=== PATIENT | female | born 1940 | race Caucasian/White ===

== ENCOUNTER 2017-04-03 07:49 | Day surgery (SDC) | payer MEDICARE ==
[~2017-04-03 07:49] MED LIST: ACYCLOVIR 5% OI30 GM TP; ACYCLOVIR800 MG PO; ADVAIR 250/5028 PUFF IN; ALBUTEROL2 PUFFS/17 IN; ASPIRIN EC81 MG PO; ASPIRIN81 M2 PO; AZITHROMYCIN250 M1 PO; BACTRIM DS 8001 TAB PO; BENTYL10 M1 PO; BIAXIN 500MG T500 MG PO; CEFTIN500 MG PO; CELEXA20 MG PO; CHEWABLE ASPIRI81 MG PO; FIORICET 325 MG1 TAB PO; GAS-X80 MG PO; IBUPROFEN 600M600 MG PO; IMDUR30 MG PO; IPRATROPIUM BROM3 M1 IH; ISOSORBIDE DINITRATE 40 MG PO; KEFLEX 500MG.500 MG PO; LASIX 40MG. TAB40 MG PO; LORTAB 5/500 501 TAB PO; LORTAB 500 MG-71 TAB PO; MAALOX 30ML30 ML/UDC PO; MEDROL 4MG. DOSE4 MG PO; MOBIC15 MG PO; MOBIC7.5 MG PO; MULTI VITAMINS1 TAB PO; MULTIVITAMIN1 TA1 PO; NAPROSYN 500MG500 MG PO; NITROQUICK0.3 MG SL; NITROSTAT 0.4M0.4 MG SL; NORCO 325 MG-51 TAB PO; PERCOCET 5/3251 EACH PO; PYRIDIUM 200MG200 MG PO; SALMETEROL-F28 PUFF2 IN; SENNA DOCUSATE1 TAB PO; TYLENOL 8 HOUR650 MG PO; VASOTEC2.5 MG PO; VASOTEC5 MG PO; VISTARIL25 MG PO; ZITHROMAX 250M250 MG PO; ZOCOR20 MG PO
[2017-04-03 08:18] LABS: HEMOGLOBIN 13.8 g/dL (12.2-16.2); LYMPH # 2.5 K/mm3 (0.7-4.5); LYMPH % 30.8 % (10-50.0)
[2017-04-03 08:21] LABS: BUN 13 mg/dL (7-18)
[2017-04-03 08:22] LABS: GFR (ESTIMATED) 70 ML/MIN (59-)
--- NOTE | 2017-04-03 10:52 | RADIOLOGY REPORT PS360 ---
CARDIAC CATHETERIZATION DATE OF CATHETERIZATION:04/03/2017 9:42 AM PROCEDURES: 1. Left heart catheterization 2. Left ventriculogram 3. Selective coronary angiogram INDICATION FOR TEST: 1. Abnormal Myoview 2. Angina pectoris 3. Risk factors for coronary artery disease Informed consent was obtained prior to the procedure. COMPLICATIONS: None ESTIMATED BLOOD LOSS: Less than 10 ml. TECHNIQUE: One percent lidocaine was used to anesthetize the right groin. The right femoral artery was accessed via the Seldinger technique. A 4-Tanzanian sheath was placed in the right femoral artery. The JL-4 and JR-4 catheter was also used to perform left heart catheterization and left ventriculography. At the end of the procedure the patient was transferred to the post-op holding area in stable condition for arterial sheath removal. ANGIOGRAPHIC RESULTS: 1. The left main artery large caliber and normal 2. The left anterior descending artery proximally has mild luminal irregularities of 10% with mild luminal irregularities of 10% in the mid segment 3. The circumflex artery is a dominant vessel and has mild less than 10% luminal irregularities 4. The right coronary artery is a nondominant vestigial vessel which has a 90% stenosis just proximal to 2 very small marginal branches. A Kugel collateral is identified from the sinoatrial branch distally. The ostium of this right coronary artery is 2.5 mm however the proximal right coronary artery is 0.5 mm and at the stenotic area it is less than 1 mm in diameter 5. The PIZANO ventriculogram reveals hyperdynamic 75% 6. The left ventricular end-diastolic pressure 10 mmHg IMPRESSION: 1. Mild luminal irregularities in the LAD and dominant circumflex artery 2. Severe stenosis and a very small vestigial nondominant right coronary artery which is clinically insignificant 3. Slightly hyperdynamic ejection fraction 4. Normal left ventricular end-diastolic pressur PLAN: 1. Medical management 2. Risk factor modification 3. I cannot manage in any clinical scenario in which performing angioplasty of the small right coronary artery would exist.
[2017-04-03 13:17] VITALS: BP 152/69
== END 2017-04-03 13:15 | disposition home or self-care (01) ==
LOC: CATHLAB 07:49
PROVIDERS: Internal Medicine
PROC: B2111ZZ Fluoroscopy of Multiple Coronary Arteries using Low Osmolar Contrast (ICD-10-PCS; 2017-04-03)
PROC: B2151ZZ Fluoroscopy of Left Heart using Low Osmolar Contrast (ICD-10-PCS; 2017-04-03)
PROC: 4A023N7 Measurement of Cardiac Sampling and Pressure, Left Heart, Percutaneous Approach (ICD-10-PCS; principal; 2017-04-03 08:30)
DX: I25.119 Atherosclerotic heart disease of native coronary artery with unspecified angina pectoris (principal); R94.39 Abnormal result of other cardiovascular function study
CPT/HCPCS: C1725; C1769; J1644; Q9967

== ENCOUNTER 2017-06-13 19:19 | Emergency (ER) | payer MEDICARE ==
[~2017-06-13] VITALS: Ht 160 cm; Wt 62.6 kg
--- NOTE | 2017-06-13 19:57 | Emergency Room Report ---
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 C/O NAUSEA AND LIGHT HEADEDNESS ALSO. 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 N Clinical Suspician of Infection? N Mental Status: 1 - Regular (Normal Baseline) Sepsis Risk:Possible Sepsis Risk Have you (or family members/close friends) recently traveled outside the [place]? N If Yes, where/when: Have you had exposure to infectious disease within the past month? N TB? Other? Specify: Patient complains of chest pain which started last night before she went to bed at the LEFT side of her chest moderate severity is dull H she states there is nausea associated with it states she called the ambulance around noon but then she stated her vital signs were okay so she did not come in her chest pain does not radiate anywhere. She has had this chest pain before. I discussed with patient that the oncoming doctor is coming in about 15 minutes and that he will take over her care, but that we will get things started now. He denies any fever chills or cough. Denies abdominal pain ALLERGIES Coded Allergies: Coconut (From COCONUT (FOOD/DRUG)) (Intermediate, I-RASH 08/05/16) Penicillins (Intermediate, I-RASH 08/05/16) TUNA (DRUG) (From TUNA (FOOD/DRUG)) (Intermediate, I-RASH 08/05/16) Tuna (From TUNA (FOOD/DRUG)) (Intermediate, I-RASH 08/05/16) coconut (From COCONUT (FOOD/DRUG)) (Intermediate, I-RASH 08/05/16) codeine (Intermediate, I-RASH, NAUSEA/VOMITING 08/05/16) levofloxacin (Mild, NA-NAUSEA/VOMITING 08/05/16) Home Medications Active Scripts SENNOSIDES-DOCUSATE SODIUM (Senokot-S Tablet) 1 TAB PO DAILY 30 Days Prov: 06/18/13 Nitroglycerin (Nitrostat 0.4MG (1/150 Gr) Tabs #25) 0.4 MG SL [id number] PRN CHEST PAIN #25 TAB Ref 2 Prov: 05/18/16 Reported Medications Isosorbide Mononitrate (Imdur) 30 MG PO DAILY NAPROXEN (NAPROSYN 500MG TAB) 500 MG PO BID MAG HYDROX/AL HYDROX/SIMETH (Mag-Al Plus Suspension) 30 ML PO PRN Simvastatin (Zocor) 20 MG PO DAILY Salmeterol 50/Fluticasone 100 (Advair 100-50 Diskus) 1 PUFF IN BID ALBUTEROL-IPRATROPIUM (Iprat-Albut 0.5-3(2.5) MG/3 Ml) 3 ML IH Q4HP Aspirin 325 MG PO DAILY Multiple Vitamin (Multivitamin) 1 TAB PO DAILY ENALAPRIL MALEATE (Vasotec 2.5MG) 5 MG PO BID DICYCLOMINE HCL (Bentyl) 10 MG PO QID HYDROCODONE/ACETAMINOPHEN ([place] 5-325 Tablet) 1 TAB PO Q4HP PRN PAIN ([place] GÓMEZ, Boni) History Medical History General CAD? Yes Angina: Yes [place]: Yes Hypertension? Yes Hyperlipidemia? Yes CHF? Yes DVT? No PE? No COPD? Yes Asthma? Yes Anemia? No GERD? Yes Gastric ulcers? No GI Bleed? No Hernia? No Thyroid Problems? No Hypothyroidism? No CVA? Yes Seizures? No Diabetes? No Renal Insuffiency? No End Stage Renal Disease? No UTI? Yes Stones? No BPH? No GB Disease: Yes Nephritic Syndrome? No Asplenia? No Hepatitis? No Sickle Cell Disease? No Arthritis? Yes Migraines? No Cataracts? Yes Glaucoma? No MRSA? No HIV? No TB? No Anxiety? Yes Depression? Yes Cancer? Yes Site: BASAL CELL SKIN CA LT ARM More? No Additional hx: 1. Lupus 2. [place] x 4 3. Stroke x 4 4. A. fib 5. Abdominal aneurysm 6. RA 7. Neuropathy Immunization Hx DT/Tetanus 1-4 Years Ago Flu Refused Pneumonia Refuses Surgical Hx Previous Surgery?Y GallbladdER Hysterectomy LEFT KNEE REPLACEMENT RT ARM FX LT FEMUR FX SKIN CA REMOVED LT ARM Family History Family Hx Diabetes Yes CAD Yes Hypertension Yes Hyperlipidemia Yes Cancer Yes TB No Social History Smoking Hx Smoker: Never Smoker Tobacco: No Packs/day N/A Alcohol Alcohol: No (Boni Barahona MD) Review of Systems All Other Systems Reviewed and Negative (Boni Barahona MD) Physical Exam Vital Signs Vital Signs Date Time Temp Pulse Resp B/P Pulse O2 O2 Flow FiO2 Ox Delivery Rate 06/14 0000 98.1 100 18 156/71 97 2 06/13 2339 98.1 93 18 148/107 97 06/134 105 18 157/86 97 2 06/134 18 06/13 2053 109 18 176/92 98 2 06/13 2012 103 21 215/109 99 06/13 1921 98.1 101 24 146/85 100 2 General Appearance: Nontoxic Head: Normocephalic, without obvious abnormality, atraumatic. Eyes: conjunctiva/corneas clear ENT: Mucous membranes moist. Neck: No jugular venous distention. Cardiac: regular rate and rhythm Lungs: Rhonchi to auscultation bilaterally Abdomen: Nontender, Nondistended, positive bowel sounds, no rebound : No CVA tenderness Extremities: no edema Musculoskeletal: No chest wall tenderness Skin: No rashes or lesions to exposed skin. Neurologic: Alert. No gross focal deficits Psychiatric: Normal affect (Boni Barahona MD) General Appearance normal appearance Respiratory Status No: respiratory distress. Cardiovascular no JVD Neurologic alert (Boni Barahona MD) Medical Decision Making LABS/Meds/Orders Pt receiving controlled substance in ED? No Comment 757 pm I have seen the patient at 745, further treatment, disposition, testing as felt indicated by Dr. You Results/Orders Laboratory Tests 06/13/172257: Troponin I < 0.02 06/13/172024: Lactic Acid 0.6 06/13/172024: Sodium 139, Potassium 3.8, Chloride 104, Carbon Dioxide 27, BUN 18, Creatinine 0.7, Estimated Creat Clear 70, Estimated GFR (MDRD) 82, Glucose 126 H, Calcium 8.7, Total Bilirubin 0.8, AST 27, ALT 35, Alkaline Phosphatase 154 H, Creatine Kinase 17 L, CK-MB (CK-2) Rel Index 2.9, CK and CKMB Interp < 0.5, Troponin I < 0.02, Total Protein 7.4, Albumin 3.7, Globulin 3.7 H, Albumin/Globulin Ratio 1.0 L, D-Dimer 666 *H, WBC 7.4, RBC 4.32, Hgb 13.6, Hct 40.6, MCV 94.0, RDW 14.5, Plt Count 194, MPV 8.0, Gran % 85.7 H, Gran # 6.3, Total Counted 100, Lymphocytes % 9.8 L, Monocytes % 3.4, Eosinophils % 0.8, Basophils % 0.4, Neutrophils 82 H, Lymphocytes (Manual) 16, Lymphocytes # 0.7, Monocytes (Manual ) 1 L, Monocytes # 0.3, Eosinophils # 0.1, Eosinophils # (Manual) 1, Basophils # 0.0, Platelet Estimate NORMAL, Anisocytosis 1+, PUBS MCHC 33.6, MCH 31.6 H, Salicylates 1.0 L Current Medication Orders Sig/Zhen Start time Last Medication Dose Route Stop Time Status Admin Iopamidol 60 ML ONCE ONE 06/13 2230 DCD 06/13 IV 06/13 2231 222 Sodium Chloride 40 ML ONCE ONE 06/13 2230 DCD 06/13 IV 06/13 2231 2227 Aspirin 0 .STK-MED ONE 06/13 2101 DC .ROUTE Ondansetron HCl 0 .STK-MED ONE 06/13 2101 DC .ROUTE Aspirin 324 MG ONCE ONE 06/13 2000 DC 06/13 PO 06/13 2001 210 Nitroglycerin 0.4 MG [id number] PRN 06/13 2000 DCD 06/13 SL 2104 Ondansetron HCl 4 MG ONCE ONE 06/13 2000 DC 06/13 IV 06/13 2001 210 Sodium Chloride 10 ML PRN PRN 06/13 1945 DCD IV 06/14 1940 Orders Procedure Date/time Status DIET-NOTHING BY MOUTH 06/14 B Active TROPONIN I 06/13 2244 Complete CTA-CHEST 06/[address] CHEST W/PE PROTOCOL REQ 06/13 2118 Complete DIFFERENTIAL-WBC 06/13 2025 Complete CHEST-PORTABLE 06/13 2022 Active D-DIMER 06/13 2021 Complete CULTURE, BLOOD 06/13 2006 Active LACTIC ACID 06/13 2006 Complete SALICYLATE 06/13 1949 Complete ELECTROCARDIOGRAM REQUEST 06/13 1941 Active IV SALINE LOCK 08/01 1941 Active NURSE CONSULTANT 06/13 1941 Active CBC WITH AUTO DIFF 06/13 1941 Complete CARDIAC ENZYMES 06/13 1941 Complete CHEM 12 PROFILE 06/13 1941 Complete 12 LEAD EKG-MARKO (INITIAL) 06/13 UNK Active 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 Pacemaker. No pneumothorax. No acute disease. CT chest Comment CT scan interpreted by [facility] radiologist. Faxed report received and reviewed: No pulmonary embolism to the segmental level. Motion artifact. Progress - 8:00 PM: At shift change, patient report received from Dr. Barahona, and care of the patient assumed by me at this time. Patient seen and examined. She says that she has chronic chest pain, "I live with it every day" for years. She says it has been worse for 2 days. She says she felt bad tonight with dizziness and chest pain and nausea and therefore called 911. She just had a pacemaker put in a couple of weeks ago. She says she had it done under general anesthesia and she was in the hospital for couple of days. Chest pain is in her anterior central and LEFT chest. She says it worsens with movement and also with deep breath. She is short of breath, but says this is chronic from chronic obstructive pulmonary disease. She also has a chronic cough, which is unchanged. No sputum or hemoptysis. She feels hot, but no documented fever. No leg pain or swelling. She is nauseated without vomiting. Examination shows her to be in no distress. Mildly tachycardic. Pacemaker insertion site LEFT upper anterior chest shows Steri-Strips in place, healing well without any signs of infection. No tenderness. She is tender diffusely over her anterior chest, however, and this reproduces her chief complaint. Onset clear. Heart regular, tachycardic without murmurs. Abdomen is soft and nontender. Extremities show no edema, no calf tenderness or cords. Good pulses in all 4 cavities. The patient very much wants to go home, she has asked me several times during her history if she can go home. 11:45 PM: The patient again requests to go home. Workup is negative. CT scan is only to the segmental level, but I am comfortable that she does not have pulmonary embolism and I feel she can be discharged. Blood pressure has come down to 156/71. (Geronimo You MD) Departure Departure Time of Disposition 1951 Condition STABLE Referrals Ivett Howe MD (Family) ED Critical Care Critical Care No (Boni Barahona MD) Departure Disposition DC Home or Self Care(routine) Clinical Impression Primary Impression: Chest pain Qualifiers: Chest pain type: precordial pain Qualified Code: R07.2 - Precordial pain Patient Instructions DI for Atypical Chest Pain Additional Instructions Additional instructions for CHEST PAIN: See your physician as soon as possible for further evaluation. Return immediately if worsening chest pain, vomiting, shortness of breath, fever, coughing of blood. (Geronimo You MD) at 1956 at 0148
--- NOTE | 2017-06-13 19:57 | Emergency Room Report ---
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 C/O NAUSEA AND LIGHT HEADEDNESS ALSO. 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 N Clinical Suspician of Infection? N Mental Status: 1 - Regular (Normal Baseline) Sepsis Risk:Possible Sepsis Risk Have you (or family members/close friends) recently traveled outside the [place]? N If Yes, where/when: Have you had exposure to infectious disease within the past month? N TB? Other? Specify: Patient complains of chest pain which started last night before she went to bed at the LEFT side of her chest moderate severity is dull H she states there is nausea associated with it states she called the ambulance around noon but then she stated her vital signs were okay so she did not come in her chest pain does not radiate anywhere. She has had this chest pain before. I discussed with patient that the oncoming doctor is coming in about 15 minutes and that he will take over her care, but that we will get things started now. He denies any fever chills or cough. Denies abdominal pain ALLERGIES Coded Allergies: Coconut (From COCONUT (FOOD/DRUG)) (Intermediate, I-RASH 08/05/16) Penicillins (Intermediate, I-RASH 08/05/16) TUNA (DRUG) (From TUNA (FOOD/DRUG)) (Intermediate, I-RASH 08/05/16) Tuna (From TUNA (FOOD/DRUG)) (Intermediate, I-RASH 08/05/16) coconut (From COCONUT (FOOD/DRUG)) (Intermediate, I-RASH 08/05/16) codeine (Intermediate, I-RASH, NAUSEA/VOMITING 08/05/16) levofloxacin (Mild, NA-NAUSEA/VOMITING 08/05/16) Home Medications Active Scripts SENNOSIDES-DOCUSATE SODIUM (Senokot-S Tablet) 1 TAB PO DAILY 30 Days Prov: 06/18/13 Nitroglycerin (Nitrostat 0.4MG (1/150 Gr) Tabs #25) 0.4 MG SL [id number] PRN CHEST PAIN #25 TAB Ref 2 Prov: 05/18/16 Reported Medications Isosorbide Mononitrate (Imdur) 30 MG PO DAILY NAPROXEN (NAPROSYN 500MG TAB) 500 MG PO BID MAG HYDROX/AL HYDROX/SIMETH (Mag-Al Plus Suspension) 30 ML PO PRN Simvastatin (Zocor) 20 MG PO DAILY Salmeterol 50/Fluticasone 100 (Advair 100-50 Diskus) 1 PUFF IN BID ALBUTEROL-IPRATROPIUM (Iprat-Albut 0.5-3(2.5) MG/3 Ml) 3 ML IH Q4HP Aspirin 325 MG PO DAILY Multiple Vitamin (Multivitamin) 1 TAB PO DAILY ENALAPRIL MALEATE (Vasotec 2.5MG) 5 MG PO BID DICYCLOMINE HCL (Bentyl) 10 MG PO QID HYDROCODONE/ACETAMINOPHEN ([place] 5-325 Tablet) 1 TAB PO Q4HP PRN PAIN ([place] GÓMEZ, Boni) History Medical History General CAD? Yes Angina: Yes [place]: Yes Hypertension? Yes Hyperlipidemia? Yes CHF? Yes DVT? No PE? No COPD? Yes Asthma? Yes Anemia? No GERD? Yes Gastric ulcers? No GI Bleed? No Hernia? No Thyroid Problems? No Hypothyroidism? No CVA? Yes Seizures? No Diabetes? No Renal Insuffiency? No End Stage Renal Disease? No UTI? Yes Stones? No BPH? No GB Disease: Yes Nephritic Syndrome? No Asplenia? No Hepatitis? No Sickle Cell Disease? No Arthritis? Yes Migraines? No Cataracts? Yes Glaucoma? No MRSA? No HIV? No TB? No Anxiety? Yes Depression? Yes Cancer? Yes Site: BASAL CELL SKIN CA LT ARM More? No Additional hx: 1. Lupus 2. [place] x 4 3. Stroke x 4 4. A. fib 5. Abdominal aneurysm 6. RA 7. Neuropathy Immunization Hx DT/Tetanus 1-4 Years Ago Flu Refused Pneumonia Refuses Surgical Hx Previous Surgery?Y GallbladdER Hysterectomy LEFT KNEE REPLACEMENT RT ARM FX LT FEMUR FX SKIN CA REMOVED LT ARM Family History Family Hx Diabetes Yes CAD Yes Hypertension Yes Hyperlipidemia Yes Cancer Yes TB No Social History Smoking Hx Smoker: Never Smoker Tobacco: No Packs/day N/A Alcohol Alcohol: No (oBni Barahona MD) Review of Systems All Other Systems Reviewed and Negative (Boni Barahona MD) Physical Exam Vital Signs Vital Signs Date Time Temp Pulse Resp B/P Pulse O2 O2 Flow FiO2 Ox Delivery Rate 06/14 0000 98.1 100 18 156/71 97 2 06/13 2339 98.1 93 18 148/107 97 06/134 105 18 157/86 97 2 06/134 18 06/13 2053 109 18 176/92 98 2 06/13 2012 103 21 215/109 99 06/13 1921 98.1 101 24 146/85 100 2 General Appearance: Nontoxic Head: Normocephalic, without obvious abnormality, atraumatic. Eyes: conjunctiva/corneas clear ENT: Mucous membranes moist. Neck: No jugular venous distention. Cardiac: regular rate and rhythm Lungs: Rhonchi to auscultation bilaterally Abdomen: Nontender, Nondistended, positive bowel sounds, no rebound : No CVA tenderness Extremities: no edema Musculoskeletal: No chest wall tenderness Skin: No rashes or lesions to exposed skin. Neurologic: Alert. No gross focal deficits Psychiatric: Normal affect (Boni Barahona MD) General Appearance normal appearance Respiratory Status No: respiratory distress. Cardiovascular no JVD Neurologic alert (Boni Barahona MD) Medical Decision Making LABS/Meds/Orders Pt receiving controlled substance in ED? No Comment 757 pm I have seen the patient at 745, further treatment, disposition, testing as felt indicated by Dr. You Results/Orders Laboratory Tests 06/13/172257: Troponin I < 0.02 06/13/172024: Lactic Acid 0.6 06/13/172024: Sodium 139, Potassium 3.8, Chloride 104, Carbon Dioxide 27, BUN 18, Creatinine 0.7, Estimated Creat Clear 70, Estimated GFR (MDRD) 82, Glucose 126 H, Calcium 8.7, Total Bilirubin 0.8, AST 27, ALT 35, Alkaline Phosphatase 154 H, Creatine Kinase 17 L, CK-MB (CK-2) Rel Index 2.9, CK and CKMB Interp < 0.5, Troponin I < 0.02, Total Protein 7.4, Albumin 3.7, Globulin 3.7 H, Albumin/Globulin Ratio 1.0 L, D-Dimer 666 *H, WBC 7.4, RBC 4.32, Hgb 13.6, Hct 40.6, MCV 94.0, RDW 14.5, Plt Count 194, MPV 8.0, Gran % 85.7 H, Gran # 6.3, Total Counted 100, Lymphocytes % 9.8 L, Monocytes % 3.4, Eosinophils % 0.8, Basophils % 0.4, Neutrophils 82 H, Lymphocytes (Manual) 16, Lymphocytes # 0.7, Monocytes (Manual ) 1 L, Monocytes # 0.3, Eosinophils # 0.1, Eosinophils # (Manual) 1, Basophils # 0.0, Platelet Estimate NORMAL, Anisocytosis 1+, PUBS MCHC 33.6, MCH 31.6 H, Salicylates 1.0 L Current Medication Orders Sig/Zhen Start time Last Medication Dose Route Stop Time Status Admin Iopamidol 60 ML ONCE ONE 06/13 2230 DCD 06/13 IV 06/13 2231 222 Sodium Chloride 40 ML ONCE ONE 06/13 2230 DCD 06/13 IV 06/13 2231 2227 Aspirin 0 .STK-MED ONE 06/13 2101 DC .ROUTE Ondansetron HCl 0 .STK-MED ONE 06/13 2101 DC .ROUTE Aspirin 324 MG ONCE ONE 06/13 2000 DC 06/13 PO 06/13 2001 210 Nitroglycerin 0.4 MG [id number] PRN 06/13 2000 DCD 06/13 SL 2104 Ondansetron HCl 4 MG ONCE ONE 06/13 2000 DC 06/13 IV 06/13 2001 210 Sodium Chloride 10 ML PRN PRN 06/13 1945 DCD IV 06/14 1940 Orders Procedure Date/time Status DIET-NOTHING BY MOUTH 06/14 B Active TROPONIN I 06/13 2244 Complete CTA-CHEST 06/[address] CHEST W/PE PROTOCOL REQ 06/13 2118 Complete DIFFERENTIAL-WBC 06/13 2025 Complete CHEST-PORTABLE 06/13 2022 Active D-DIMER 06/13 2021 Complete CULTURE, BLOOD 06/13 2006 Active LACTIC ACID 06/13 2006 Complete SALICYLATE 06/13 1949 Complete ELECTROCARDIOGRAM REQUEST 06/13 1941 Active IV SALINE LOCK 08/01 1941 Active WAX PUMPER 06/13 1941 Active CBC WITH AUTO DIFF 06/13 1941 Complete CARDIAC ENZYMES 06/13 1941 Complete CHEM 12 PROFILE 06/13 1941 Complete 12 LEAD EKG-MARKO (INITIAL) 06/13 UNK Active 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 Pacemaker. No pneumothorax. No acute disease. CT chest Comment CT scan interpreted by [facility] radiologist. Faxed report received and reviewed: No pulmonary embolism to the segmental level. Motion artifact. Progress - 8:00 PM: At shift change, patient report received from Dr. Barahona, and care of the patient assumed by me at this time. Patient seen and examined. She says that she has chronic chest pain, "I live with it every day" for years. She says it has been worse for 2 days. She says she felt bad tonight with dizziness and chest pain and nausea and therefore called 911. She just had a pacemaker put in a couple of weeks ago. She says she had it done under general anesthesia and she was in the hospital for couple of days. Chest pain is in her anterior central and LEFT chest. She says it worsens with movement and also with deep breath. She is short of breath, but says this is chronic from chronic obstructive pulmonary disease. She also has a chronic cough, which is unchanged. No sputum or hemoptysis. She feels hot, but no documented fever. No leg pain or swelling. She is nauseated without vomiting. Examination shows her to be in no distress. Mildly tachycardic. Pacemaker insertion site LEFT upper anterior chest shows Steri-Strips in place, healing well without any signs of infection. No tenderness. She is tender diffusely over her anterior chest, however, and this reproduces her chief complaint. Onset clear. Heart regular, tachycardic without murmurs. Abdomen is soft and nontender. Extremities show no edema, no calf tenderness or cords. Good pulses in all 4 cavities. The patient very much wants to go home, she has asked me several times during her history if she can go home. 11:45 PM: The patient again requests to go home. Workup is negative. CT scan is only to the segmental level, but I am comfortable that she does not have pulmonary embolism and I feel she can be discharged. Blood pressure has come down to 156/71. (Geronimo You MD) Departure Departure Time of Disposition 1951 Condition STABLE Referrals Ivett Howe MD (Family) ED Critical Care Critical Care No (Boni Barahona MD) Departure Disposition DC Home or Self Care(routine) Clinical Impression Primary Impression: Chest pain Qualifiers: Chest pain type: precordial pain Qualified Code: R07.2 - Precordial pain Patient Instructions DI for Atypical Chest Pain Additional Instructions Additional instructions for CHEST PAIN: See your physician as soon as possible for further evaluation. Return immediately if worsening chest pain, vomiting, shortness of breath, fever, coughing of blood. (Geronimo You MD) at 1956 at 0148
[2017-06-13 20:39] LABS: HEMOGLOBIN 13.6 g/dL (12.2-16.2); LYMPH # 0.7 K/mm3 (0.7-4.5); LYMPH % 9.8 % (10-50.0)
[2017-06-13 21:07] LABS: BUN 18 mg/dL (7-18)
[2017-06-13 21:10] LABS: GFR (ESTIMATED) 82 ML/MIN (59-)
[2017-06-13 22:42] LABS: NEUTROPHILS 82 % (42-76)
[2017-06-14] VITALS: BP 156/71
--- NOTE | 2017-06-14 08:15 | RADIOLOGY REPORT PS360 ---
CHEST-PORTABLE COMPARISON: PA and lateral chest 05/29/2017 HISTORY: S pain TECHNIQUE: Portable upright chest FINDINGS: There is a fairly good inspiration and the lung contreras are clear of infiltrate. Again noted is a calcified granuloma right upper lobe. There is borderline cardio megaly. The cardiac pacemaker and dual chamber electrodes are noted and this has been put in since the previous chest film of 29 May. The costo phrenic angles are clear. IMPRESSION: Nonacute chest findings
--- NOTE | 2017-06-14 08:19 | RADIOLOGY REPORT PS360 ---
CTA -CHEST COMPARISON: None HISTORY: Chest pain and shortness of breath TECHNIQUE: Multiaxial scans obtained from the upper chest to the hemidiaphragms after rapid injection of IV contrast. Sagittal coronal reformats were evaluated as well. FINDINGS: There is excellent vascular opacification. There is mild generalized cardio megaly with moderate aortic tortuosity. There are no definite pulmonary emboli seen. There are areas of diffuse groundglass attenuation in the lung contreras primarily in the perihilar regions and lower lobes probably reflecting some degree of chronic interstitial lung disease. I see no definite acute pneumonic infiltrate. There is no pleural fluid. The bony thorax is normal. IMPRESSION: 1. There is no PE 2. Moderate generalized cardio megaly with aortic tortuosity with no evidence of failure. 3.. Diffuse areas of groundglass opacity in both lungs likely reflecting chronic interstitial pulmonary disease, agree the [facility] report
--- OUTSIDE RECORDS SUMMARY | 2017-06-16 17:32 | External Medical Summary Rpt ---
Author Author [facility] Organization [facility] Address Unknown Phone Unavailable Care Team Providers Care Network Control Technician Name Role Phone SADE ALMENDAREZ PCP [phone] Encounter [facility] [id number] Date(s): 05/31/17 - 06/01/17 [facility] [address] [place] [id number]- Discharge Diagnosis: Sick sinus syndrome Discharge Disposition: OP Self Care or Home Attending Physician: ROCK REDDING MD-CAR Admitting Physician: ROCK REDDING MD-CAR Referring Physician: ROCK REDDING MD-CAR Reason for Visit SICK SINUS SYNDROME Vital Signs Most recent 1 2 3 to oldest [Reference Range]: Temperature Oral Oral (06/01/17 Oral Source (06/01/17 4:00 PM) 12:30 PM) (06/01/17 7:42 AM) Temperature Fahrenheit Fahrenheit Fahrenheit Mode (06/01/17 4:00 PM) (06/01/17 12:30 (06/01/17 7:42 AM) PM) Temperature, 97.4 Deg F 97.6 Deg F 97.6 Deg F Fahrenheit (06/01/17 4:00 PM) (06/01/17 12:30 (06/01/17 12:15 [96.8-99.7 PM) PM) Deg F] Clinical 36.3 Deg C 36.4 Deg C 36.4 Deg C Temperature, (06/01/17 4:00 PM) (06/01/17 12:30 (06/01/17 12:15 C PM) PM) Pulse Method Pulse Oximetry (05/31/17 4:00 PM) Heart Rate, 38 bpm Apical *LOW* [60-100 bpm] (05/31/17 5:19 PM) Heart Rate 64 bpm 65 bpm 66 bpm Monitored (06/01/17 4:00 PM) (06/01/17 3:30 PM) (06/01/17 3:00 PM) [60-100 bpm] Respiratory 18 Breaths/Min 16 Breaths/Min 18 Breaths/Min Rate [14-20 (06/01/17 4:00 PM) (06/01/17 12:30 (06/01/17 7:48 AM) Breaths/Min] PM) Blood Arm, right upper Pressure (05/31/17 4:00 PM) Location Blood Non-Invasive BP Pressure Device (05/31/17 Source 4:00 PM) Blood Sitting Pressure (05/31/17 4:00 PM) Position Blood 123/57 mmHg 116/58 mmHg 110/58 mmHg Pressure (06/01/17 4:00 PM) (06/01/17 3:30 PM) (06/01/17 3:00 PM) [90-140/60-9 0 mmHg] Mean 79 mmHg 77 mmHg 75 mmHg Arterial (06/01/17 4:00 PM) (06/01/17 3:30 PM) (06/01/17 3:00 PM) Pressure (MAP) Mean 74 93 68 Arterial (06/01/17 4:00 PM) (06/01/17 3:30 PM) (06/01/17 3:00 PM) Pressure (MAP)-BMDI Oxygen 97 % 95 % 95 % Saturation (06/01/17 4:00 PM) (06/01/17 3:30 PM) (06/01/17 3:00 PM) [94-100 %] Oxygen Room air Nasal cannula Nasal cannula Therapy Mode (06/01/17 4:00 PM) (06/01/17 8:00 AM) (06/01/17 7:56 AM) Oxygen Flow 2 Liter/Min 2 Liter/Min 2 Liter/Min Rate (06/01/17 8:00 AM) (06/01/17 7:56 AM) (06/01/17 7:42 AM) Height Stated Stated Source (05/31/17 6:23 PM) (05/31/17 4:15 PM) Height Entry [place] Doddr[place] Format (05/31/17 6:23 PM) (05/31/17 4:15 PM) Height/Lengt 5 ft 5 ft h, SYRIAC (05/31/17 6:23 PM) (05/31/17 4:15 PM) (ft) Height/Lengt 3 Inch 3 Inch h SYRIAC (05/31/17 6:23 PM) (05/31/17 4:15 PM) CLINICALHEIG 160.02 cm 160.02 cm HT (05/31/17 6:23 PM) (05/31/17 4:15 PM) Weight Bed scale Standing scale Source (05/31/17 6:23 PM) (05/31/17 4:15 PM) Weight Entry [place] Doddridge Format (05/31/17 6:23 PM) (05/31/17 4:15 PM) Weight 138 lb 140 lb Korean lb (05/31/17 6:23 PM) (05/31/17 4:15 PM) Weight 2 oz Korean oz (05/31/17 6:23 PM) CLINICALWEIG 62.78 kg 63.64 kg HT (05/31/17 6:23 PM) (05/31/17 4:15 PM) Body Surface 1.65 m2 1.66 m2 Area (BSA) (05/31/17 6:23 PM) (05/31/17 4:15 PM) Body Mass 24.5 kg/m2 24.9 kg/m2 Index *HI* *HI* [19.0-24.0 (05/31/17 6:23 PM) (05/31/17 4:15 PM) kg/m2] [place] Body 52 kg 52 kg Weight (05/31/17 6:23 PM) (05/31/17 4:15 PM) Problem List Condition Effective Status Health Informant Dates Status Aneurysm(Con Active patient firmed) Angina(Confi Active patient rmed) Arthritis(Co Active patient nfirmed) Atrial Active patient fibrillation (Confirmed) Back Active patient pain(Confirm ed) Cataract(Con Active patient firmed) Cardiac Active patient arrhythmia(C onfirmed) COPD(Confirm Active patient ed) Deep vein Active patient thrombosis(C onfirmed) GERD - Active patient Gastro-esoph ageal reflux disease(Conf irmed) H/O: Active patient CVA(Confirme d) Heart Active patient failure(Conf irmed) Bradycardia( Active patient Confirmed) Hypertension Active patient (Confirmed) Impaired Active patient vision(Confi rmed) Insomnia(Con Active patient firmed) Irritable Active patient bowel syndrome(Con firmed) Basal cell Active patient cancer(Confi rmed) Migraine(Con Active patient firmed) Myocardial Active patient infarction(C onfirmed) Neuropathy(C Active patient onfirmed) Osteoporosis Active patient (Confirmed) Lupus(Confir Active patient med) Allergies, Adverse Reactions, Alerts Substance Reaction Severity Status codeine Active Levaquin Active penicillin Active Medications acetaminophen-hydrocodone ([place] 5 mg-325 mg oral tablet)1 Tab, Oral, Every 6 Hours, Refills: 0 albuterol-ipratropium (albuterol-ipratropium 2.5 mg-0.5 mg/3 mL inhalation solution)3 mL, Nebulized Inhalation , Four Times A Day, Refills: 0 aspirin (aspirin 81 mg oral delayed release tablet)1 Tab, Oral, Every Day, Refills: 0 dicyclomine (Bentyl 10 mg oral capsule) 1 Cap, Oral, Four Times A Day, Refills: 0 docusate-senna (docusate-senna 50 mg-8.6 mg oral tablet)1 Tab, Oral, Every Day, Refills: 0 enalapril (enalapril 2.5 mg oral tablet) 1 Tab, Oral, Every Day, Refills: 0 fluticasone-salmeterol (Advair Diskus 250 mcg-50 mcg inhalation powder)1 Puff, Inhalation, Two Times A Day, Refills: 0 isosorbide mononitrate (Imdur 30 mg oral tablet, extended release)1 Tab, Oral, Every Morning, Refills: 0 multivitamin (Multiple Vitamins oral capsule) 1 Cap, Oral, Every Day, Refills: 0 naproxen (naproxen 500 mg oral tablet) 1 Tab, Oral, Two Times A Day, Refills: 0 nitroglycerin (Nitrostat 0.4 mg sublingual tablet)1 Tab, SubLINgual , every 5 minutes, As Needed, as needed for chest pain, Refills: 0 Non Formulary (mag-al ultimate strength)1 Tab, , Oral, Every Day, , As Needed, as needed, Refills: 0 simvastatin (simvastatin 20 mg oral tablet) 1 Tab, Oral, At Bedtime, Refills: 0 Results GENERAL CHEMISTRY Most recent 1 to oldest [Reference Range]: Sodium Level 143 mmol/L [136-146 (06/01/17 3:50 AM) mmol/L] Potassium 4.2 mmol/L Level (06/01/17 3:50 AM) [3.5-5.1 mmol/L] Chloride 110 mmol/L Level (06/01/17 3:50 AM) [102-112 mmol/L] Carbon 23 mmol/L Dioxide (06/01/17 3:50 AM) Level [21-32 mmol/L] Anion Gap 14 [9-20] (06/01/17 3:50 AM) Glucose 103 mg/dL Level (06/01/17 3:50 AM) [74-106 mg/dL] Blood Urea 21 mg/dL Nitrogen (06/01/17 3:50 AM) [7-22 mg/dL] Creatinine 0.90 mg/dL Level (06/01/17 3:50 AM) [0.55-1.02 mg/dL] eGFR 74 mL/min/1.73m2 [>=60 (06/01/17 3:50 AM) mL/min/1.73m 2] eGFR 61 mL/min/1.73m2 NonAfrican (06/01/17 3:50 AM) [>=60 mL/min/1.73m 2] Bun/Creatini 23.3 ne *HI* [8.0-20.0] (06/01/17 3:50 AM) Calcium 8.2 mg/dL Level *LOW* [8.5-10.1 (06/01/17 3:50 AM) mg/dL] HEMATOLOGY Most recent 1 to oldest [Reference Range]: WBC 7.3 K/uL [4.0-10.0 (06/01/17 3:50 AM) K/uL] RBC 3.45 Million/uL [3.93-5.22 *LOW* Million/uL] (06/01/17 3:50 AM) Hgb 10.7 g/dL [11.2-15.7 *LOW* g/dL] (06/01/17 3:50 AM) Hct 32.9 % [34.1-44.9 *LOW* %] (06/01/17 3:50 AM) MCV 95.4 fL [79.0-94.8 *HI* fL] (06/01/17 3:50 AM) MCH 31.0 pg [25.6-32.2 (06/01/17 3:50 AM) pg] MCHC 32.5 Gram/dL [32.2-36.5 (06/01/17 3:50 AM) Gram/dL] Platelet 193 K/uL Count (06/01/17 3:50 AM) [163-369 K/uL] MPV 10.4 fL [9.4-12.4 (06/01/17 3:50 AM) fL] RDW 13.2 % [11.6-14.4 (06/01/17 3:50 AM) %] Neut % 57.2 % [34.0-71.0 (06/01/17 3:50 AM) %] Neut # 4.20 K/uL [1.56-6.13 (06/01/17 3:50 AM) K/uL] Lymph % 32.7 % [19.3-53.1 (06/01/17 3:50 AM) %] Lymph # 2.40 x10(3)/uL [1.00-3.90 (06/01/17 3:50 AM) x10(3)/uL] [place] % 7.4 % [3.0-9.0 %] (06/01/17 3:50 AM) [place] # 0.54 K/uL [0.16-1.00 (06/01/17 3:50 AM) K/uL] Eos % 2.0 % [0.0-7.0 %] (06/01/17 3:50 AM) Eos # 0.15 x10(3)/uL [0.00-0.80 (06/01/17 3:50 AM) x10(3)/uL] Baso % 0.3 % [0.0-1.5 %] (06/01/17 3:50 AM) Baso # 0.02 x10(3)/uL [0.00-0.20 (06/01/17 3:50 AM) x10(3)/uL] Slide Review No (06/01/17 3:50 AM) IG# 0.03 x10(3)/uL [0.00-0.05 (06/01/17 3:50 AM) x10(3)/uL] IG% 0.40 % [0.00-0.60 (06/01/17 3:50 AM) %] Immunizations No data available for this section Procedures No data available for this section Social History Social History Response Type Smoking Status Never smoker Assessment and Plan Extracted from: Title: [facility] Author: VAHID, Date: 06/01/17 Cardiology Discharge MD ROCK-CAR Note [facility] CARDIOLOGYD ISCHARGE NOTE:DIAGNOSIS:1.SSS2.S/P PPMSUBJECTIVE:Doing well. Feeling better after PPM implantationVitals Signs (last 24 hrs) Last Charted Minimum MaximumTemp 97.4 (JUN 01 07:42)L 96 (MAY 31 21:00)98.2 (MAY 31:00)Apical HR L 38 (MAY 31 17:19)L 38 (MAY 31:19)L 38 (MAY 31:19)Mon HR 45 (JUN 01 07:48)35 (JUN 01 07:42)67 (MAY 31 20:18)Resp Rate 18 (JUN 01 07:48)L 10 (MAY 31 16:00)H 30 (MAY 31 17:00)SBP 115 (JUN 01 07:42)L 64 (MAY 31 21:00)H 228 (MAY 31 16:00)DBP 87 (JUN 01 07:42)L 41 (JUN 01 01:30)H 92 (MAY 31 16:45)MAP 96 (JUN 01 07:42)49 (MAY 31 21:00)137 (MAY 31 16:00)SpO2 99 (JUN 01 08:00)L 91 (MAY 31 16:15)100 (JUN 01 07:42)TELE:PAced rhythmGTTS:NoneBlood Gases (Current Encounter/Past 24 Hours)No Blood Gas Results Found (Past 24 Hours)Labs (Last four charted values)WBC 7.3(JUN 01)HB L 10.7(JUN 01)HCT L 32.9(JUN 01)Plt 193(JUN 01)Na 143(JUN 01)K 4.2(JUN 01)Cl 110(JUN 01)CO2 23(JUN 01)BUN 21(JUN 01)Cr 0.90(JUN 01)Glu R 103(JUN 01)Ca L 8.2(JUN 01)EXAM: Alert & Orientated, No apparent distress.HEAD&NECK: No JVD, No carotid bruit, No massesCORONARY: RRR, S1/S2, No murmursLUNGS: CTA/B, No rhonchi, No wheezeABDOMEN: Soft, Non-tender, Positive Bowel soundsEXTREMITIES: No edema, No cyanosis, Pedal pulses palpable, No hematomaIMPRESSION:1.SSS S/P Cardiam PPM2.Chest pain, atypical3.Chronic anxiety.4.Chronic obstructive pulmonary disease.5.Hypertension.6.Hyperlipidemia.7.H/o questionable cerebrovascular accident x4.PLAN:DC homeDIET: AHAACTIVITY: No heavy lifting x 10days. Pacer instructions givenCompliance with meds counselledF/U x 2 weeks with wound checkF/U x [address] Lima No Blood Gas Results Found (Past 24 Hours) Labs (Last four charted values) WBC 7.3(JUN 01) HB L 10.7(JUN 01) HCT L 32.9(JUN 01) Plt 193(JUN 01) Na 143(JUN 01) K 4.2(JUN 01) Cl 110(JUN 01) CO2 23(JUN 01) BUN 21(JUN 01) Cr 0.90(JUN 01) Glu R 103(JUN 01) Ca L 8.2(JUN 01) EXAM: Alert & Orientated, No apparent distress. HEAD&NECK: No JVD, No carotid bruit, No masses CORONARY: RRR, S1/S2, No murmurs LUNGS: CTA/B, No rhonchi, No wheeze ABDOMEN: Soft, Non-tender, Positive Bowel sounds EXTREMITIES: No edema, No cyanosis, Pedal pulses palpable, No hematoma IMPRESSION: 1.SSS S/P Cardiam PPM 2.Chest pain, atypical 3.Chronic anxiety. 4.Chronic obstructive pulmonary disease. 5.Hypertension. 6.Hyperlipidemia. 7.H/o questionable cerebrovascular accident x4. PLAN: DC home DIET: AHA ACTIVITY: No heavy lifting x 10days. Pacer instructions given Compliance with meds counselled F/U x 2 weeks with wound check F/U x [address] [facility] Discharge Instructions Patient EducationBradycardia Electrophysiology Study Pacemaker Implantation Sick Sinus Syndrome
--- OUTSIDE RECORDS SUMMARY | 2017-06-16 17:32 | External Medical Summary Rpt ---
Author Author [facility] Organization [facility] Address Unknown Phone Unavailable Care Team Providers Care Staffing Program Manager Name Role Phone SADE ALMENDAREZ PCP [phone] Encounter [facility] [id number] Date(s): 05/31/17 - 06/01/17 [facility] [address] [place] [id number]- Discharge Diagnosis: Sick sinus syndrome Discharge Disposition: [...] 6:23 PM) (05/31/17 4:15 PM) Height Entry [place] Format (05/31/17 6:23 PM) (05/31/17 4:15 PM) Height/Lengt 5 ft 5 ft h, [place] (05/31/17 6:23 PM) (05/31/17 4:15 PM) (ft) Height/Lengt 3 Inch 3 Inch h [place] (05/31/17 6:23 PM) (05/31/17 4:15 PM) CLINICALHEIG 160.02 cm 160.02 cm HT (05/31/17 6:23 PM) (05/31/17 4:15 PM) Weight Bed scale Standing scale Source (05/31/17 6:23 PM) (05/31/17 4:15 PM) Weight Entry [place] Format (05/31/17 6:23 PM) (05/31/17 4:15 PM) Weight 138 lb 140 lb Chinese lb (05/31/17 6:23 PM) (05/31/17 4:15 PM) Weight 2 oz Chinese oz (05/31/17 6:23 PM) CLINICALWEIG 62.78 kg 63.64 kg HT (05/31/17 6:23 PM) (05/31/17 4:15 PM) Body Surface 1.65 m2 1.66 m2 Area (BSA) (05/31/17 6:23 PM) (05/31/17 4:15 PM) Body Mass 24.5 kg/m2 24.9 kg/m2 Index *HI* *HI* [19.0-24.0 (05/31/17 6:23 PM) (05/31/17 4:15 PM) kg/m2] [place] Body 52 kg 52 kg Weight (05/31/17 [...] Active Levaquin Active penicillin Active Medications acetaminophen-hydrocodone ([place] 5 mg-325 mg oral tablet)1 Tab, Oral, [...] 2.40 x10(3)/uL [1.00-3.90 (06/01/17 3:50 AM) x10(3)/uL] [place] % 7.4 % [3.0-9.0 %] (06/01/17 3:50 AM) [place] # 0.54 K/uL [0.16-1.00 (06/01/17 3:50 AM) [...] smoker Assessment and Plan Extracted from: Title: [facility] Author: VAHID, Date: 06/01/17 Cardiology Discharge MD ROCK-CAR Note [facility] CARDIOLOGYD ISCHARGE NOTE:DIAGNOSIS:1.SSS2.S/P PPMSUBJECTIVE:Doing well. Feeling better [...]
--- OUTSIDE RECORDS SUMMARY | 2017-06-16 17:35 | External Medical Summary Rpt ---
Author Author , LADAN PICKERING Address Unknown Phone [email or web address] Care Team Providers Care Instructional Media Services Technician Name Role Phone DELIA GOLDBERG, Unavailable Unavailable DELIA GOLDBERG NEZAR M, Unavailable Unavailable JOSÉ K[facility] Unavailable Unavailable [facility], [facility] Unavailable [facility] Mayelin Pruitt APRN, Unavailable Unavailable BRENDA Donohue APRN, Unavailable Unavailable BRENDA POTTS DON R, Unavailable Unavailable JEFFERY CARMONA Purpose Continuity of Care Document - 11-18-2008 through 2016 Problems Code Diagnosis DOS Provider Status 94544 SHORTNESS 12-30-2008 LATASHA, OF BREATH JEFFERY Lunsford 7866 SWELLING, 12-30-2008 LATASHA, MASS, OR JEFFERY Lunsford LUMP IN CHEST 4414 ABDOMINAL 12-29-2008 [facility] ANE[facility] WITHOUT IMAGING MENTION OF ASSOCIATES RUPTURE 57197 OTH 12-02-2008 [facility] INFLAMMATOR INC Y POLYARTHROP ATHIES OTH 91849 UNSPECIFIED 12-02-2008 [facility] RESPIRATORY INC ABNORMALITY V5869 LONG-TERM 12-02-2008 [facility] (CURRENT[facility] USE OF INC OTHER MEDICATIONS 77519 PRECORDIAL 11-26-2008 [facility] PSC 5738 OTHER 11-21-2008 [facility] SPECIFIED MEDICAL DISORDERS IMAGING OF LIVER ASSOCIATES 7936 NONSPEC ABN 11-21-2008 [facility] F[facility]NG RAD [facility] & OTH EXAM INC ABDOMINAL AREA V4581 POSTSURGICA 11-18-2008 Brandy CARMONA AORTOCORONA RY BYPASS STATUS [id number] Chest pain [facility] [id number] Anemia due [place] to blood [facility] 599.0 Acute lower [place] urinary [facility] tract [facility] infection [id number] Fracture of [facility] Allergies, Adverse Reactions, Alerts Type Drug Allergy Food Allergy Adverse Reaction to Substance Substance Reaction Severity Penicillin I-RASH Intermediate Codeine Unknown Unknown Levofloxacin NA-NAUSEA/VOMITING Mild [place]oconut I-RASH Intermediate Tuna I-RASH Intermediate Medications Na ND Rx Da Fi Fi Am Da Di Ph RX Ph St me C No te ll ll ou ys ag ar # ys at rm s nt no ma ic us Or Da si cy ia de te s n re d SE 67 08 0 No NO 61 -0 KO 80 6- Lo T- 31 20 ng S 00 13 er TA 1 BL Ac ET ti ve Is 68 08 1 No os 08 -0 or 40 5- Lo bi 43 20 ng de 50 13 er 1 Mo Ac no ti ni ve tr at e 30 MG Ta KE 00 08 2 No TO 40 -0 RO 93 4- Lo LA 79 20 ng C 50 13 er 30 1 Ac MG ti /M ve L AL HY [address] 40 -0 OC 60 4- Lo OD 36 20 ng ON 66 13 er -A 2 CE Ac TA ti OH ve NO PH 7. 5- 32 5 Mo 00 08 2 No rp 40 -0 hi 91 4- Lo ne 25 20 ng 83 13 er 4M 0 G/ Ac Ml ti ve Sy ri ng e IP 00 08 2 No RA 48 -0 T- 70 4- Lo AL 20 20 ng BU 10 13 er T 1 0. Ac 5- ti 3( ve 2. 5) MG /3 ML Na 51 08 2 No pr 07 -0 ox 90 4- Lo en 79 20 ng 52 13 er 50 0 0M Ac G ti Ta ve bl et ME 51 08 2 No AV 07 -0 90 4- Lo TA 78 20 ng TI 22 13 er N 0 SO Ac DI ti UM ve 40 MG TA B AD 00 08 2 No VA 17 -0 IR 30 4- Lo 69 20 ng 10 50 13 er 0- 4 50 Ac ti DI ve SK US CL 00 08 1 No IN 40 -0 DA 94 4- Lo MY 05 20 ng CI 40 13 er N 3 15 Ac 0 ti MG ve /M L AD DV AN CE 00 08 2 No FT 40 -0 RI 97 4- Lo AX 33 20 ng ON 30 13 er E 4 1 Ac GM ti ve AL SO 00 08 2 No DI 40 -0 UM 97 4- Lo 10 20 ng CH 16 13 er LO 6 RI Ac DE ti ve 0. 9% SO LN LA [address] 40 -0 AT 97 4- Lo ED 95 20 ng 30 13 er RI 9 NG Ac ER ti S ve IN JE CT IO N Na 51 08 1 No pr 07 -0 ox 90 3- Lo en 79 20 ng 52 13 er 50 0 0M Ac G ti Ta ve bl et 63 08 1 No PI 73 -0 RI 90 3- Lo N 43 20 ng 81 40 13 er 1 MG Ac ti CH ve EW AB LE TA BL ET Is 68 08 1 No os 08 -0 or 40 3- Lo bi 43 20 ng de 50 13 er 1 Mo Ac no ti ni ve tr at e 30 MG Ta HY [address] 40 -0 OC 60 3- Lo OD 36 20 ng ON 66 13 er -A 2 CE Ac TA ti OH ve NO PH 7. 5- 32 5 ME 51 08 1 No AV 07 -0 90 3- Lo TA 78 20 ng TI 22 13 er N 0 SO Ac DI ti UM ve 40 MG TA B Sa 63 08 1 No li 80 -0 ne 70 2- Lo 10 20 ng Fl 07 13 er us 5 h Ac 10 ti ML ve Sy ri ng e Mo 00 08 0 No rp 40 -0 hi 91 2- Lo ne 25 20 ng 83 13 er 4M 0 G/ Ac Ml ti ve Sy ri ng e ON 00 08 0 No DA 64 -0 NS 16 2- Lo ET 08 20 ng RO 02 13 er N 5 HC Ac L ti 4 ve MG /2 ML AL ME 00 08 2 No OM 64 -0 ET 11 2- Lo MC 49 20 ng ZI 53 13 er NE 5 Ac 25 ti ve MG /M L AM PU L Mo 00 08 0 No rp 40 -0 hi 91 2- Lo ne 76 20 ng 23 13 er 2M 0 G/ Ac Ml ti ve Sy ri ng e Mo 00 08 2 No rp 40 -0 hi 91 2- Lo ne 25 20 ng 83 13 er 4M 0 G/ Ac Ml ti ve Sy ri ng e SO 00 08 2 No DI 40 -0 UM 97 2- Lo 98 20 ng CH 30 13 er LO 9 RI Ac DE ti ve 0. 9% SO DARIA TI ON CE 00 08 0 No FT 40 -0 RI 97 2- Lo AX 33 20 ng ON 30 13 er E 4 1 Ac GM ti ve AL Mo 00 03 0 No rp 40 -2 hi 91 8- Lo ne 25 20 ng 83 13 er 4M 0 G/ Ac Ml ti ve Sy ri ng e AC 00 03 1 No YC 09 -2 LO 38 8- Lo 94 20 ng R 30 13 er 40 1 0 Ac MG ti ve TA BL ET 63 03 1 No PI 73 -2 RI 90 8- Lo N 43 20 ng 81 40 13 er 1 MG Ac ti CH ve EW AB LE TA BL ET LE 00 03 1 No XA 45 -2 ME 62 8- Lo O 01 20 ng 10 06 13 er 3 MG Ac ti TA ve BL ET Is 00 03 1 No os 18 -2 or 20 8- Lo bi 86 20 ng de 88 13 er 9 Di Ac ni ti tr ve at e 2O MG Ta bl Li 00 03 1 No si 17 -2 no 23 8- Lo pr 75 20 ng il 91 13 er 0 10 Ac MG ti ve Ta bl et Pr 00 03 1 No av 59 -2 as 10 8- Lo ta 01 20 ng ti 61 13 er n 9 40 Ac MG ti ve Ta bl et SO 00 03 2 No DI 40 -2 UM 97 7- Lo 98 20 ng CH 30 13 er LO 9 RI Ac DE ti ve 0. 9% SO DARIA TI ON Sa 63 03 1 No li 80 -2 ne 70 7- Lo 10 20 ng Fl 07 13 er us 5 h Ac 10 ti ML ve Sy ri ng e Ni 00 03 0 No tr 08 -2 og 81 7- Lo ly 55 20 ng ce 24 13 er ri 9 n Ac 1 ti In ve ch Oi nt Ud p KE 00 03 0 No TO 40 -2 RO 93 7- Lo LA 79 20 ng C 50 13 er 30 1 Ac MG ti /M ve L AL Ni 00 03 2 No tr 08 -2 og 81 7- Lo ly 55 20 ng ce 24 13 er ri 9 n Ac 1 ti In ve ch Oi nt Ud p Mo 00 03 2 No rp 40 -2 hi 91 7- Lo ne 25 20 ng 83 13 er 4M 0 G/ Ac Ml ti ve Sy ri ng e ME 00 03 2 No OM 64 -2 ET 11 7- Lo MC 49 20 ng ZI 53 13 er NE 5 Ac 25 ti ve MG /M L AM PU L Vital Signs 06-18-2013 15:42 Name Value Interpretat Reference Comment ion Range Body 98.7 [degF] Temperature BP 70 mm[Hg] Diastolic BP Systolic 134 mm[Hg] Heart 105 /min Rate/Pulse O2% 97 % Respiratory 20 /min Rate 06-16-2013 12:25 Name Value Interpretat Reference Comment ion Range Weight 67.132 kg Measured 06-14-2013 23:15 Name Value Interpretat Reference Comment ion Range Height 160.02 cm 06-14-2013 20:19 Name Value Interpretat Reference Comment ion Range Body 98.7 [degF] Temperature BP 102 mm[Hg] Diastolic BP Systolic 105 mm[Hg] Heart 82 /min Rate/Pulse O2% 95 % Respiratory 20 /min Rate Weight 00 [oz_av] Measured 02-08-2013 04:00 Name Value Interpretat Reference Comment ion Range Body 98.5 [degF] Temperature BP 45 mm[Hg] Diastolic BP Systolic 125 mm[Hg] Heart 71 /min Rate/Pulse O2% 95 % Respiratory 20 /min Rate 02-06-2013 16:28 Name Value Interpretat Reference Comment ion Range Height 152.40 cm Weight 69.400 kg Measured 02-06-2013 11:09 Name Value Interpretat Reference Comment ion Range Body 98.6 [degF] Temperature BP 89 mm[Hg] Diastolic BP Systolic 164 mm[Hg] Heart 71 /min Rate/Pulse O2% 93 % Respiratory 16 /min Rate Weight 0 [oz_av] Measured Results Labs Lab Lab Date Result Refere Interp Status Commen Order Detail nces retati t Range on Differential panel, method unspecified - (06-13-2017 20:25) Anisocy 1+ complet tosis 017 ed [Presen 20:25 ce] in Blood LYMPH 16 % 10% - Normal complet 017 50% ed 20:25 Platele NORMAL complet ts 017 ed [Presen 20:25 ce] in Blood by Light microsc opy CBC with AUTO DIFF (06-18-2013 08:40) WBC # 06-18- 6.6 4.8-10. complet Bld 013 K/MM3 8 ed Auto 08:40 RBC # 06-18- 3.36 4.2-5.4 complet Bld 013 M/mm3 ed Auto 08:40 Hgb 10.2 12.2-16 complet Bld-mCn 013 g/dL .2 ed c 08:40 Hct Fr 31.0 % 37.0-47 complet Bld 013 .0 ed 08:40 MCV RBC 08-06-2 92.3 fl 82.2-97 complet 013 .8 ed 08:40 MCH RBC 08-06-2 30.4 pg 27-31.2 complet Qn 013 ed Auto 08:40 MEAN 08-06-2 32.9 31.8-35 complet CORPUSC 013 g/dl .4 ed ULAR 08:40 HGB CONC RDW RBC 08-06-2 17.1 % 11.5-17 complet Auto 013 .5 ed 08:40 Platele 08-06-2 150 142-424 complet t Bld 013 K/mm3 ed Ql 08:40 Manual MEAN 08-06-2 9.3 fl 7.4-10. complet PLATELE 013 4 ed T 08:40 VOLUME Granulo 08-06-2 73.4 % 37.0-80 complet cytes 013 .0 ed Fr Bld 08:40 Auto LYMPH % 08-06-2 20.6 % 10-50.0 complet 013 ed 08:40 Monocyt 08-06-2 3.9 % 1.7-9.3 complet es Fr 013 ed Bld 08:40 Auto Eosinop 08-06-2 1.8 % 0.1-12. complet hil Fr 013 0 ed Bld 08:40 Auto Basophi 08-06-2 0.2 % 0.1-2.0 complet ls Fr 013 ed Bld 08:40 Auto Granulo 08-06-2 4.8 1.8-7.8 complet cytes # 013 K/mm3 ed Bld 08:40 Auto Lymphoc 08-06-2 1.4 0.7-4.5 complet ytes Fr 013 K/mm3 ed Bld 08:40 Auto Monocyt 08-06-2 0.3 0.1-1.0 complet es # 013 K/mm3 ed Bld 08:40 Auto Eosinop 08-06-2 0.1 0.0-0.4 complet hil # 013 K/mm3 ed Bld 08:40 Auto Basophi 08-06-2 0.0 0-0.2 complet ls # 013 K/MM3 ed Bld 08:40 Auto BASIC METABOLIC PANEL (06-17-2013 06:15) Glucose 0805-2 129 74-106 complet 013 mg/dL ed Bld-mCn 06:15 c BUN 08-- 15 7-18 complet Bld-mCn 013 mg/dL ed c 06:15 Creat 0.8 0.6-1.0 complet SerPl-m 013 mg/dL ed Cnc 06:15 ESTIMAT 69 50-200 complet ED 013 ML/MIN ed CREATIN 06:15 DYLAN CLEARAN CE GFR 71 59- complet (ESTIMA 013 ML/MIN ed JIM) 06:15 Sodium 145 136-145 complet SerPl-s 013 mmoL/L ed Cnc 06:15 Potassi 3.8 3.5-5.1 complet um 013 mmoL/L ed SerPl-s 06:15 Cnc Chlorid 111 98-107 complet e 013 mmoL/L ed SerPl-s 06:15 Cnc CO2 30 21.0-32 complet SerPl-s 013 mmoL/L .0 ed Cnc 06:15 Calcium 7.7 8.5-10. complet 013 mg/dL 1 ed SerPl-m 06:15 Cnc CBC with AUTO DIFF (06-17-2013 06:15) WBC # 05-2 7.3 4.8-10. complet Bld 013 K/MM3 8 ed Auto 06:15 RBC # 05-2 2.27 4.2-5.4 complet Bld 013 M/mm3 ed Auto 06:15 Hgb 7.3 12.2-16 Low complet Bld-mCn 013 g/dL .2 alert ed c 06:15 Hct Fr 21.8 % 37.0-47 Low complet Bld 013 .0 alert ed 06:15 MCV RBC 96.1 fl 82.2-97 complet 013 .8 ed 06:15 MCH RBC 32.2 pg 27-31.2 complet Qn 013 ed Auto 06:15 MEAN 33.5 31.8-35 complet CORPUSC 013 g/dl .4 ed ULAR 06:15 HGB CONC RDW RBC 14.4 % 11.5-17 complet Auto 013 .5 ed 06:15 Platele 160 142-424 complet t Bld 013 K/mm3 ed Ql 06:15 Manual MEAN 08-05-2 8.5 fl 7.4-10. complet PLATELE 013 4 ed T 06:15 VOLUME Granulo 08-05-2 69.0 % 37.0-80 complet cytes 013 .0 ed Fr Bld 06:15 Auto LYMPH % 08-05-2 24.7 % 10-50.0 complet 013 ed 06:15 Monocyt 08-05-2 4.0 % 1.7-9.3 complet es Fr 013 ed Bld 06:15 Auto Eosinop 08-05-2 1.9 % 0.1-12. complet hil Fr 013 0 ed Bld 06:15 Auto Basophi 08-05-2 0.4 % 0.1-2.0 complet ls Fr 013 ed Bld 06:15 Auto Granulo 08-05-2 5.0 1.8-7.8 complet cytes # 013 K/mm3 ed Bld 06:15 Auto Lymphoc 08-05-2 1.8 0.7-4.5 complet ytes Fr 013 K/mm3 ed Bld 06:15 Auto Monocyt 08-05-2 0.3 0.1-1.0 complet es # 013 K/mm3 ed Bld 06:15 Auto Eosinop 08-05-2 0.1 0.0-0.4 complet hil # 013 K/mm3 ed Bld 06:15 Auto Basophi 08-05-2 0.0 0-0.2 complet ls # 013 K/MM3 ed Bld 06:15 Auto BASIC METABOLIC PANEL (06-15-2013 12:45) URINE 08-03-2 YELLOW YELLOW complet COLOR 013 ed 12:45 URINE 0803-2 CLEAR CLEAR complet APPEARA 013 ed NCE 12:45 URINE 03-2 NEGATIV NEG complet GLUCOSE 013 E ed - 12:45 DIPSTIC K URINE 08-03-2 NEGATIV NEG complet BILIRUB 013 E ed IN - 12:45 DIPSTIC K URINE 08-03-2 NEGATIV NEG complet KETONE 013 E mg/dL ed 12:45 URINE 08-03-2 1.025 1.005-1 complet SPECIFI 013 UNK .030 ed C 12:45 GRAVITY URINE 03-2 2+ NEG complet BLOOD 013 ed 12:45 URINE 08-03-2 6.0 UNK 5.0-8.5 complet PH 013 ed 12:45 URINE NEGATIV NEG complet PROTEIN 013 E mg/dL ed - 12:45 DIPSTIC K URINE 0.2 NEG complet UROBILI 013 E.U./dL ed NOGEN - 12:45 DIPSTIC K URINE POSITIV NEG complet NITRATE 013 E ed - 12:45 DIPSTIC K URINE 2+ NEG complet LEUK 013 ed ESTERAS 12:45 E URINE 10-20 0 complet RBC 013 rbc/hpf ed 12:45 URINE 20-50 O complet WBC 013 wbc/hpf ed 12:45 URINE 5-10 0-5 complet SQUAMOU 013 #/hpf ed S CELLS 12:45 URINE 3+ O complet BACTERI 013 ed A 12:45 URINE 1+ OCC complet MUCUS 013 ed 12:45 BASIC METABOLIC PANEL (06-15-2013 07:00) Glucose 142 74-106 complet 013 mg/dL ed Bld-mCn 07:00 c BUN 11 7-18 complet Bld-mCn 013 mg/dL ed c 07:00 Creat 0.8 0.6-1.0 complet SerPl-m 013 mg/dL ed Cnc 07:00 GFR 71 59- complet (ESTIMA 013 ML/MIN ed JIM) 07:00 Sodium 144 136-145 complet SerPl-s 013 mmoL/L ed Cnc 07:00 Potassi 3.9 3.5-5.1 complet um 013 mmoL/L ed SerPl-s 07:00 Cnc Chlorid 107 98-107 complet e 013 mmoL/L ed SerPl-s 07:00 Cnc CO2 28 21.0-32 complet SerPl-s 013 mmoL/L .0 ed Cnc 07:00 Calcium 7.9 8.5-10. complet 013 mg/dL 1 ed SerPl-m 07:00 Cnc CBC with AUTO DIFF (06-15-2013 07:00) WBC # 06-15- 10.1 4.8-10. complet Bld 013 K/MM3 8 ed Auto 07:00 RBC # 08-03-2 3.57 4.2-5.4 complet Bld 013 M/mm3 ed Auto 07:00 Hgb 08-03-2 11.3 12.2-16 complet Bld-mCn 013 g/dL .2 ed c 07:00 Hct Fr 06-15-2 33.8 % 37.0-47 complet Bld 013 .0 ed 07:00 MCV RBC 2 94.7 fl 82.2-97 complet 013 .8 ed 07:00 MCH RBC 2 31.8 pg 27-31.2 complet Qn 013 ed Auto 07:00 MEAN 03 33.6 31.8-35 complet CORPUSC 013 g/dl .4 ed ULAR 07:00 HGB CONC RDW RBC 06-15-2 14.2 % 11.5-17 complet Auto 013 .5 ed 07:00 Platele 2 259 142-424 complet t Bld 013 K/mm3 ed Ql 07:00 Manual MEAN 2 8.3 fl 7.4-10. complet PLATELE 013 4 ed T 07:00 VOLUME Granulo -03-2 82.2 % 37.0-80 complet cytes 013 .0 ed Fr Bld 07:00 Auto LYMPH % -03-2 13.7 % 10-50.0 complet 013 ed 07:00 Monocyt 03-2 3.8 % 1.7-9.3 complet es Fr 013 ed Bld 07:00 Auto Eosinop -03-2 0.1 % 0.1-12. complet hil Fr 013 0 ed Bld 07:00 Auto Basophi 03-2 0.2 % 0.1-2.0 complet ls Fr 013 ed Bld 07:00 Auto Granulo 08-03-2 8.3 1.8-7.8 complet cytes # 013 K/mm3 ed Bld 07:00 Auto Lymphoc 08-03-2 1.4 0.7-4.5 complet ytes Fr 013 K/mm3 ed Bld 07:00 Auto Monocyt 08-03-2 0.4 0.1-1.0 complet es # 013 K/mm3 ed Bld 07:00 Auto Eosinop 08-03-2 0.0 0.0-0.4 complet hil # 013 K/mm3 ed Bld 07:00 Auto Basophi 0.0 0-0.2 complet ls # 013 K/MM3 ed Bld 07:00 Auto URINALYSIS/COMPLETE (06-14-2013 22:15) URINE YELLOW YELLOW complet COLOR 013 ed 22:15 URINE SL CLEAR complet APPEARA 013 CLOUDY ed NCE 22:15 URINE NEGATIV NEG complet GLUCOSE 013 E ed - 22:15 DIPSTIC K URINE NEGATIV NEG complet BILIRUB 013 E ed IN - 22:15 DIPSTIC K URINE NEGATIV NEG complet KETONE 013 E mg/dL ed 22:15 URINE 1.015 1.005-1 complet SPECIFI 013 UNK .030 ed C 22:15 GRAVITY URINE NEGATIV NEG complet BLOOD 013 E ed 22:15 URINE 6.5 UNK 5.0-8.5 complet PH 013 ed 22:15 URINE NEGATIV NEG complet PROTEIN 013 E mg/dL ed - 22:15 DIPSTIC K URINE 0.2 NEG complet UROBILI 013 E.U./dL ed NOGEN - 22:15 DIPSTIC K URINE POSITIV NEG complet NITRATE 013 E ed - 22:15 DIPSTIC K URINE TRACE NEG complet LEUK 013 ed ESTERAS 22:15 E URINE 10-20 O complet WBC 013 wbc/hpf ed 22:15 URINE 4+ O complet BACTERI 013 ed A 22:15 COMPREHENSIVE METABOLIC PANEL (06-14-2013 20:30) Glucose 155 74-106 complet 013 mg/dL ed Bld-mCn 20:30 c BUN 10 7-18 complet Bld-mCn 013 mg/dL ed c 20:30 Creat 0.9 0.6-1.0 complet SerPl-m 013 mg/dL ed Cnc 20:30 GFR 62 59- complet (ESTIMA 013 ML/MIN ed JIM) 20:30 Sodium 08-02-2 142 136-145 complet SerPl-s 013 mmoL/L ed Cnc 20:30 Potassi 08-2 4.1 3.5-5.1 complet um 013 mmoL/L ed SerPl-s 20:30 Cnc Chlorid 06-14-2 106 98-107 complet e 013 mmoL/L ed SerPl-s 20:30 Cnc CO2 06-14-2 28 21.0-32 complet SerPl-s 013 mmoL/L .0 ed Cnc 20:30 Calcium 02-2 8.4 8.5-10. complet 013 mg/dL 1 ed SerPl-m 20:30 Cnc Prot 06-14-2 7.2 6.4-8.2 complet SerPl-m 013 gm/dL ed Cnc 20:30 Albumin 06-14-2 3.7 3.4-5.0 complet 013 gm/dL ed SerPl-m 20:30 Cnc Globuli 06-14-2 3.5 1.3-3.2 complet n 013 gm/dL ed Ser-mCn 20:30 c Albumin 06-14-2 1.1 UNK 1.1-1.8 complet /Glob 013 ed SerPl-m 20:30 Rto Bilirub 06-14-2 0.6 0.2-1.0 complet 013 mg/dL ed SerPl-m 20:30 Cnc AST 06-14-2 31 U/L 15-37 complet SerPl-c 013 ed Cnc 20:30 ALT 06-14-2 38 U/L 30-65 complet SerPl-c 013 ed Cnc 20:30 ALP 06-14-2 140 U/L 50-136 complet SerPl-c 013 ed Cnc 20:30 CBC with AUTO DIFF (06-14-2013 20:30) WBC # 08-02-2 7.8 4.8-10. complet Bld 013 K/MM3 8 ed Auto 20:30 RBC # 02-2 4.19 4.2-5.4 complet Bld 013 M/mm3 ed Auto 20:30 Hgb 06-14-2 13.2 12.2-16 complet Bld-mCn 013 g/dL .2 ed c 20:30 Hct Fr 06-14-2 39.5 % 37.0-47 complet Bld 013 .0 ed 20:30 MCV RBC 08-02-2 94.1 fl 82.2-97 complet 013 .8 ed 20:30 MCH RBC 08-02-2 31.5 pg 27-31.2 complet Qn 013 ed Auto 20:30 MEAN 08-02-2 33.5 31.8-35 complet CORPUSC 013 g/dl .4 ed ULAR 20:30 HGB CONC RDW RBC 08-02-2 14.3 % 11.5-17 complet Auto 013 .5 ed 20:30 Platele 08-02-2 222 142-424 complet t Bld 013 K/mm3 ed Ql 20:30 Manual MEAN 08-02-2 7.8 fl 7.4-10. complet PLATELE 013 4 ed T 20:30 VOLUME Granulo 08-02-2 70.4 % 37.0-80 complet cytes 013 .0 ed Fr Bld 20:30 Auto LYMPH % 08-02-2 24.4 % 10-50.0 complet 013 ed 20:30 Monocyt 08-02-2 3.2 % 1.7-9.3 complet es Fr 013 ed Bld 20:30 Auto Eosinop 08-02-2 1.4 % 0.1-12. complet hil Fr 013 0 ed Bld 20:30 Auto Basophi 08-02-2 0.5 % 0.1-2.0 complet ls Fr 013 ed Bld 20:30 Auto Granulo 08-02-2 5.5 1.8-7.8 complet cytes # 013 K/mm3 ed Bld 20:30 Auto Lymphoc 08-02-2 1.9 0.7-4.5 complet ytes Fr 013 K/mm3 ed Bld 20:30 Auto Monocyt 08-02-2 0.3 0.1-1.0 complet es # 013 K/mm3 ed Bld 20:30 Auto Eosinop 08-02-2 0.1 0.0-0.4 complet hil # 013 K/mm3 ed Bld 20:30 Auto Basophi 08-02-2 0.0 0-0.2 complet ls # 013 K/MM3 ed Bld 20:30 Auto COMPREHENSIVE METABOLIC PANEL (02-06-2013 11:20) Glucose 103 74-106 complet 013 mg/dL ed Bld-mCn 11:20 c BUN 03-27-2 10 7-18 complet Bld-mCn 013 mg/dL ed c 11:20 Creat 2 0.8 0.6-1.0 complet SerPl-m 013 mg/dL ed Cnc 11:20 GFR 71 59- complet (ESTIMA 013 ML/MIN ed JIM) 11:20 Sodium 143 136-145 complet SerPl-s 013 mmoL/L ed Cnc 11:20 Potassi 2 3.5 3.5-5.1 complet um 013 mmoL/L ed SerPl-s 11:20 Cnc Chlorid 107 98-107 complet e 013 mmoL/L ed SerPl-s 11:20 Cnc CO2 2 28 21.0-32 complet SerPl-s 013 mmoL/L .0 ed Cnc 11:20 Calcium 2 8.2 8.5-10. complet 013 mg/dL 1 ed SerPl-m 11:20 Cnc Prot 2 6.7 6.4-8.2 complet SerPl-m 013 gm/dL ed Cnc 11:20 Albumin 2 3.5 3.4-5.0 complet 013 gm/dL ed SerPl-m 11:20 Cnc Globuli 2 3.2 1.3-3.2 complet n 013 gm/dL ed Ser-mCn 11:20 c Albumin 02-06-2 1.1 UNK 1.1-1.8 complet /Glob 013 ed SerPl-m 11:20 Rto Bilirub 2 0.5 0.2-1.0 complet 013 mg/dL ed SerPl-m 11:20 Cnc AST 02-06-2 17 U/L 15-37 complet SerPl-c 013 ed Cnc 11:20 ALT 02-06-2 34 U/L 30-65 complet SerPl-c 013 ed Cnc 11:20 ALP 02-06-2 119 U/L 50-136 complet SerPl-c 013 ed Cnc 11:20 CBC with AUTO DIFF (02-06-2013 11:20) WBC # 27-2 6.3 4.8-10. complet Bld 013 K/MM3 8 ed Auto 11:20 RBC # 02-06-2 4.18 4.2-5.4 complet Bld 013 M/mm3 ed Auto 11:20 Hgb 02-06-2 13.5 12.2-16 complet Bld-mCn 013 g/dL .2 ed c 11:20 Hct Fr 02-06-2 38.7 % 37.0-47 complet Bld 013 .0 ed 11:20 MCV RBC 02-06-2 92.5 fl 82.2-97 complet 013 .8 ed 11:20 MCH RBC 02-06-2 32.3 pg 27-31.2 complet Qn 013 ed Auto 11:20 MEAN 02-06-2 34.9 31.8-35 complet CORPUSC 013 g/dl .4 ed ULAR 11:20 HGB CONC RDW RBC 02-06-2 14.4 % 11.5-17 complet Auto 013 .5 ed 11:20 Platele 02-06-2 222 142-424 complet t Bld 013 K/mm3 ed Ql 11:20 Manual MEAN 02-06-2 7.9 fl 7.4-10. complet PLATELE 013 4 ed T 11:20 VOLUME Granulo 02-06-2 59.4 % 37.0-80 complet cytes 013 .0 ed Fr Bld 11:20 Auto LYMPH % 27-2 34.0 % 10-50.0 complet 013 ed 11:20 Monocyt 02-06-2 3.7 % 1.7-9.3 complet es Fr 013 ed Bld 11:20 Auto Eosinop -27-2 2.3 % 0.1-12. complet hil Fr 013 0 ed Bld 11:20 Auto Basophi -27-2 0.7 % 0.1-2.0 complet ls Fr 013 ed Bld 11:20 Auto Granulo -27-2 3.8 1.8-7.8 complet cytes # 013 K/mm3 ed Bld 11:20 Auto Lymphoc -27-2 2.2 0.7-4.5 complet ytes Fr 013 K/mm3 ed Bld 11:20 Auto Monocyt 03-27-2 0.2 0.1-1.0 complet es # 013 K/mm3 ed Bld 11:20 Auto Eosinop 03-27-2 0.1 0.0-0.4 complet hil # 013 K/mm3 ed Bld 11:20 Auto Basophi 03-27-2 0.0 0-0.2 complet ls # 013 K/MM3 ed Bld 11:20 Auto Procedures Procedure DOS Code Location Performer Comment RADIOLOGI 24974 LATASHA CARMONA C 9 DON R DON R [place]AM[place]AT[place] [address] PAVAN CORTEZON RETROPERI 9 [facility] TONEAL INC INC REAL TIME W/IMAGE COMPLETE LIPID 08955 PAVAN BROWNE PANEL 9 [facility] [place] [address] P[facility] PAVAN IC 9 [facility] PEPTIDE INC INC BLOOD [id number] PAVAN P[facility]AN COUNT 9 [facility] COMPLETE INC INC AUTO&AUTO DIFRNTL WBC SEDIMENTA [id number] PAVAN P[facility]AN TION RATE 9 [facility] RBC INC INC NON-AUTOM ATED COMPREHEN [id number] P[facility]AN BROWNE SIVE 9 [facility] METABOLIC INC INC PANEL COLLECTIO [id number] PAVAN PAVAN N VENOUS 9 [facility] [id number] PAVAN P[facility] ABDOMINAL 9 [facility] REAL INC INC TIME W/IMAGE DOCUMENTA TION CLOSED 79.15 RED-INT FIX FEMUR Encounters Encounter Start End Date Code Location Performer Type Date Inpatient [facility] [place] 3 20:49 3 19:15 [facility] R. Inpatient [place] 3 11:23 3 10:58 [facility] R. OFFICE [id number] LATASHA CARMONA OUTPATIEN 9 9 JEFFERY R JEFFERY R T VISIT 25 MINUTES [facility] [place] 9 [facility] - [place] 9 [facility] OUTPATIEN [facility] OFF[facility] [id number] [facility], CONSULTAT 9 9 FAMILY JOSÉ GAMBLE PHYSICIAN NEW/ESTAB PSC PATIENT 60 MIN [facility] - [place] 9 [facility] T OFFICE [id number] LATASHA CARMONA OUTPATIEN 9 9 DON R DON R T VISIT 15 MINUTES
--- OUTSIDE RECORDS SUMMARY | 2017-06-16 17:35 | External Medical Summary Rpt ---
Author Author , LADAN PICKERING Address Unknown Phone Care Team Providers Care Policy And Planning Manager Name Role Phone DELIA GOLDBERG, Unavailable Unavailable DELIA GOLDBERG NEZAR M, Unavailable Unavailable [facility] Unavailable Un[facility] Unavailable [facility] Mayelin Pruitt APRN, Unavailable Unavailable BRENDA Donohue APRN, Unavailable Unavailable BRENDA POTTS DON R, Unavailable Unavailable JEFFERY CARMONA Purpose Continuity of Care Document - 11-18-2008 through 2016 Problems Code Diagnosis DOS Provider Status 78848 SHORTNESS 12-30-2008 LATASHA, OF BREATH JEFFERY [place] 7866 SWELLING, 12-30-2008 LATASHA, MASS, OR JEFFERY [place] LUMP IN CHEST 4414 ABDOMINAL 12-29-2008 [place] [facility]ICAL WITHOUT IMAGING MENTION OF ASSOCIATES RUPTURE 45149 OTH 12-02-2008 [facility] INFLAMMATOR INC Y POLYARTHROP ATHIES OTH 46740 UNSPECIFIED 12-02-2008 [facility] RESPIRATORY INC ABNORMALITY V5869 LONG-TERM 12-02-2008 [facility] (CURRENT[facility] USE OF INC OTHER MEDICATIONS 98457 PRECORDIAL 11-26-2008 [facility] PSC 5738 OTHER 11-21-2008 [place] SPECIFIED MEDICAL DISORDERS IMAGING OF LIVER ASSOCIATES 7936 NONSPEC ABN 11-21-2008 [facility] FINDNG RAD [facility] & OTH EXAM INC ABDOMINAL AREA V4581 POSTSURGICA 11-18-2008 Brandy CARMONA AORTOCORONA RY BYPASS STATUS [id number] Chest pain [facility] [id number] Anemia due [place] to blood [facility] 599.0 Acute lower [place] urinary [facility] tract [facility] infection [id number] Fracture of [facility] Allergies, Adverse Reactions, Alerts Type Drug [...] er -A 2 CE Ac TA ti TN ve NO PH 7. 5- 32 5 [...] Ac G ti Ta ve bl et PA 51 08 2 No AV 07 -0 [...] er -A 2 CE Ac TA ti TN ve NO PH 7. 5- 32 5 PA 51 08 1 No AV 07 -0 [...] ti 4 ve MG /2 ML AL PA 00 08 2 No OM 64 -0 [...] 00 03 1 No XA 45 -2 PA 62 8- Lo O 01 20 ng [...] Ml ti ve Sy ri ng e PA 00 03 2 No OM 64 -2 [...] Procedure DOS Code Location Performer Comment RADIOLOGI 78272 LATASHA CARMONA C 9 DON R DON R EXAMINATI [place] [address] PAVAN CORTEZON RETROPERI 9 [facility] TONEAL INC INC REAL TIME W/IMAGE COMPLETE LIPID 15922 [facility] BROWNE PANEL 9 [facility] INC INC NATRIURET 17481 P[facility]AN PAVAN IC 9 [facility] PEPTIDE INC INC BLOOD 97241 P[facility]AN PAVNA COUNT 9 [facility] COMPLETE INC INC AUTO&AUTO DIFRNTL WBC SEDIMENTA 52943 PAVAN PAVAN TION RATE 9 [facility] RBC INC INC NON-AUTOM ATED COMPREHEN 02732 [facility] BROW[facility] SIVE 9 [facility] METABOLIC INC INC PANEL COLLECTIO 75772 PAVAN PAVAN N VENOUS 9 [facility] [address] PAVAN PAVAN ABDOMINAL 9 [facility] REAL INC INC TIME W/IMAGE DOCUMENTA TION CLOSED 79.15 RED-INT FIX FEMUR Encounters Encounter Start End Date Code Location Performer Type Date Inpatient [facility] [place]avan [place] 3 20:49 3 19:15 [facility] R. Inpatient AREN [place] 3 11:23 3 10:58 [facility] R. OFFICE [id number] LATASHA CARMONA OUTPATIEN 9 9 JEFFERY R JEFFERY R T VISIT 25 MINUTES [facility]OSPITAL [facility] [place] 9 [facility] PAVAN - [place] 9 [facility] OUTPATIEN [facility] T OFFICE 00045 [facility], CONSULTAT 9 9 FAMILY JOSÉ GAMBLE PHYSICIAN NEW/ESTAB PSC PATIENT 60 MIN [facility]OSPITAL PAVAN - [place] 9 [facility] OUTPATIEN INC T OFFICE 84088 LATASHA CARMONA OUTPATIEN 9 9 DON R DON R T VISIT 15 MINUTES
--- OUTSIDE RECORDS SUMMARY | 2017-06-16 17:36 | External Medical Summary Rpt ---
Demographics Preferred Language Uzbek Marital Status Unknown Jewish Affiliation Unknown Race Unknown Ethnic Group Unknown Author Author , LADAN PICKERING Address Unknown Phone Immunization Unable to retrieve immunization data due to connection failure with Immunization Registry. Please try again later.
--- OUTSIDE RECORDS SUMMARY | 2017-06-16 17:36 | External Medical Summary Rpt ---
Demographics Preferred Language Turkmen Marital Status Unknown Worship Affiliation Unknown Race Unknown Ethnic Group Unknown Author Author , LADAN PICKERING Address Unknown Phone Immunization Unable to retrieve immunization data due to connection failure with Immunization Registry. Please try again later.
--- OUTSIDE RECORDS SUMMARY | 2017-06-16 17:36 | External Medical Summary Rpt ---
Author Author , LADAN PICKERING Address Unknown Phone [email or web address] Care Team Providers Care Continuity Manager Name Role Phone DELIA GOLDBERG, Unavailable Unavailable DELIA GOLDBERG JOSÉ KERR, Unavailable Unavailable [facility] Un[facility] BRENDA POTTS, Unavailable Unavailable BRENDA POTTS DON R, Unavailable Unavailable JEFFERY PAGAN Purpose Continuity of Care Document - 11-18-2008 through 2016 Problems Code Diagnosis DOS Provider Status 52171 SHORTNESS 12-30-2008 PAGAN, OF BREATH DON R 7866 SWELLING, 12-30-2008 PAGAN, MASS, OR DON R LUMP IN CHEST 4414 ABDOMINAL 12-29-2008 [place] AN[facility]ICAL WITHOUT IMAGING MENTION OF ASSOCIATES RUPTURE 45127 OTH 12-02-2008 [facility] INFLAMMATOR INC Y POLYARTHROP ATHIES OTH 26461 UNSPECIFIED 12-02-2008 [facility] RESPIRATORY INC ABNORMALITY V5869 LONG-TERM 12-02-2008 [facility] (CURRENT[facility] USE OF INC OTHER MEDICATIONS 10260 PRECORDIAL 11-26-2008 [facility] FAMILY PHYSICIAN PSC 5738 OTHER 11-21-2008 [place] SPECIFIED MEDICAL DISORDERS IMAGING OF LIVER ASSOCIATES 7936 NONSPEC ABN 11-21-2008 [facility] FINDNG RAD [facility] & OTH EXAM INC ABDOMINAL AREA V4581 POSTSURGICA 11-18-2008 Brandy PAGAN AORTOCORONA RY BYPASS STATUS Procedures Procedure DOS Code Location Performer Comment RADIOLOGI 06396 LATASHA PAGAN C 9 JEFFERY [place]AM[place]AT[place] [address] [place] MICHAEL POTTS 9 MEDICAL BRENDA Bailey TONEAL IMAGING REAL TIME ASSOCIATE W/IMAGE S COMPLETE LIPID 74735 [facility] BROWNE PANEL 9 [facility] INC INC NATRIURET 32879 [facility] BROWNE IC 9 [facility] PEPTIDE INC INC BLOOD 89083 [facility] BROWNE COUNT 9 [facility] COMPLETE INC INC AUTO&AUTO DIFRNTL WBC COLLECTIO 45272 P[facility] BROWNE N VENOUS 9 [facility] BLOOD INC INC VENIPUNCT URE COMPREHEN 48559 P[facility] BROWNE SIVE 9 [facility]OS[facility] METABOLIC INC INC PANEL SEDIMENTA 84939 P[facility] BROWNE TILILIYA RATE 9 [facility] RBC INC INC NON-AUTOM ATED 75263 [place] YUSUF, ABDOMINAL 9 MEDICAL DELIA REAL IMAGING TIME ASSOCIATE W/IMAGE S DOCUMENTA TION Encounters Encounter Start End Date Code Location Performer Type Date OFFICE 83111 LATASHA PAGAN OUTPATIEN 9 9 DON R DON R T VISIT 25 MINUTES HOSPITAL [facility] - 9 9 [facility] - 9 9 [facility]PATI[facility] INC T OFFICE 49072 [facility] 9 9 FAMILY JOSÉ GAMBLE PHYSICIAN NEW/ESTAB PSC PATIENT 60 MIN [facility]OSP[facility] - 9 9 [facility] OUTPATIEN INC T OFFICE 74360 LATASHA PAGAN OUTPATIEN 9 9 DON R DON R T VISIT 15 MINUTES
--- OUTSIDE RECORDS SUMMARY | 2017-06-16 17:36 | External Medical Summary Rpt ---
Author Author JENSEMANI Johnston, [employer] Organization [employer] Address Unknown Phone Unavailable Results CBC W Auto Differential panel in Blood Observa Value Referen Units Interpr Notes Date tion ce etation Range Basophils 0 - 0.2 K/MM3 Normal No Jun 13 informati 2016 8:25 [#/volume on in PM ] in source Blood by data Automated count Basophils 0.1 - 2.0 % Normal No Jun 13 / informati 2017 8:25 leukocyte on in PM s in source Blood by data Automated count Eosinophi 0.0 - 0.4 K/mm3 Normal No Jun 13 ls informati 2017 8:25 [#/volume on in PM ] in source Blood by data Automated count Eosinophi 0.1 - % Normal No Jun 13 ls/100 12.0 informati 2017 8:25 leukocyte on in PM s in source Blood by data Automated count Granulocy 1.8 - 7.8 K/mm3 Normal No Jun 13 ann informati 2017 8:25 [#/volume on in PM ] in source Blood by data Automated count Granulocy 37.0 - % High No Jun 13 ann/100 80.0 informati 2017 8:25 leukocyte on in PM s in source Blood by data Automated count Hematocri 37.0 - % Normal No Jun 13 t [Volume 47.0 informati 2017 8:25 on in PM Fraction] source of Blood data Hemoglobi 12.2 - g/dL Normal No Jun 13 n 16.2 informati 2017 8:25 [Mass/vol on in PM ume] in source Blood data Lymphocyt 0.7 - 4.5 K/mm3 Normal No Jun 13 es informati 2017 8:25 [#/volume on in PM ] in source Unspecifi data ed specimen by Automated count Lymphocyt 10 - 50.0 % Low No Jun 13 es informati 2017 8:25 [#/volume on in PM ] in source Unspecifi data ed specimen by Automated count Erythrocy 27 - 31.2 pg High No Jun 13 te mean informati 2017 8:25 corpuscul on in PM ar source hemoglobi data n [Entitic mass] Erythrocy 31.8 - g/dl Normal No Jun 13 te mean 35.4 informati 2016 8:25 corpuscul on in PM ar source hemoglobi data n concentra tion [Mass/vol ume] by Automated count Erythrocy 82.2 - fl Normal No Jun 13 te mean 97.8 informati 2016 8:25 corpuscul on in PM ar volume source [Entitic data volume] by Automated count Monocytes 0.1 - 1.0 K/mm3 Normal No Jun 13 informati 2016 8:25 [#/volume on in PM ] in source Blood by data Automated count Monocytes 1.7 - 9.3 % Normal Jun 13 informati 2016 8:25 leukocyte on in PM s in source Blood by data Automated count Platelet 7.4 - fl Normal No Jun 13 mean 10.4 informati 2016 8:25 volume on in PM [Entitic source volume] data in Blood by Automated count Platelets 142 - 424 K/mm3 Normal No Jun 13 informati 2016 8:25 [#/volume on in PM ] in source Blood data Erythrocy 4.2 - 5.4 M/mm3 Normal No Jun 13 ann informati 2016 8:25 [#/volume on in PM ] in source Amniotic data fluid Erythrocy 11.5 - % Normal No Jun 13 te 17.5 informati 2016 8:25 distribut on in PM ion width source [Entitic data volume] by Automated count Leukocyte 4.8 - K/MM3 Normal No Jun 13 s 10.8 informati 2016 8:25 [#/volume on in PM ] in source Blood data Differential panel, method unspecified - Observa Value Referen Units Interpr Notes Date tion ce etation Range Anisocy 1+ No No No No Jun 13 tosis informa informa informa informa 2016 [Presen tion in tion in tion in tion in 8:25 PM ce] in source source source source Blood data data data data Eosinophi 0 - 3 % Normal No Jun 13 ls100 informati 2016 8:25 leukocyte on in PM s in source Blood by data Manual count LYMPH 16 10 - 50 % Normal No Jun 13 inform2016 tion in 8:25 PM source data Monocytes 2 - 9 % Low No Jun 13 informati 2016 8:25 leukocyte on in PM s in source Blood by data Automated count Platele NORMAL No No No No Jun 13 ts informa informa informa informa 2016 [Presen tion in tion in tion in tion in 8:25 PM ce] in source source source source Blood data data data data by Light microsc opy Neutrophi 42 - 76 % High No Jun 13 ls informati 2016 8:25 [#/volume on in PM ] in source Blood by data Automated count Cells No #CELLS No No Jun 13 Counted informati informati informati 2016 8:25 Total [#] on in on in on in PM in Blood source source source data data data Fibrin D-dimer FEU [Mass/volume] in Platelet poor plasma Observa Value Referen Units Interpr Notes Date ti ce etation Range Fibrin 0 - 400 ng/mL High Jun 13 D-dimer alert NOTIFICAT 2017 8:25 FEU ION PM [Mass/vol RESULT ume] in The Platelet D-Dimer poor values plasma are presented in units of mass(ng/m L) ofD-Dimer units(DDU ).This test has been FDA approved as an aid in the assessmen tand evaluatio n of suspected DIC, and thromboem bolic eventsinc luding PE and DVT. However, it does not have approvalf or cut-off values for the exclusion of these condition s. Lactate [Moles/volume] in Blood Observa Value Referen Units Interpr Notes Date ti ce etation Range Lactate 0.4 - 2.0 mmol/L Normal No Jun 13 [Moles/vo 2016 8:25 lume] in on in PM Blood source data Salicylates [Mass/volume] in Serum or Plasma Observa Value Referen Units Interpr Notes Date ti ce etation Range Salicylat 2.8 - mg/dL Low No Jun 13 es 20.0 informati 2016 8:25 [Mass/vol on in PM ume] in source Serum or data Plasma Comprehensive metabolic 2000 panel in Serum or Plasma Observa Value Referen Units Interpr Notes Date ti ce etation Range Albumin/G 1.1 - 1.8 No Normal No May 29 lobulin informati informati 2016 1:06 [Mass on in on in PM ratio] in source source Serum or data data Plasma Albumin 3.4 - 5.0 gm/dL Normal No May 29 [Mass/vol informati 2016 1:06 ume] in on in PM Serum or source Plasma data Alkaline 46 - 116 U/L High No May 29 phosphata informati 2016 1:06 se on in PM [Enzymati source c data activity/ volume] in Serum or Plasma Bilirubin 0.2 - 1.0 mg/dL Normal No May 29 .total informati 2016 1:06 [Mass/vol on in PM ume] in source Serum or data Plasma Urea 7 - 18 mg/dL Normal No May 29 nitrogen informati 2016 1:06 [Mass/vol on in PM ume] in source Serum or data Plasma Calcium 8.5 - mg/dL Normal No May 29 [Mass/vol 10.1 informati 2016 1:06 ume] in on in PM Serum or source Plasma data Chloride 98 - 107 mmoL/L High No May 29 [Moles/vo informati 2016 1:06 lume] in on in PM Serum or source Plasma data Carbon 21.0 - mmoL/L Normal No May 29 dioxide, 32.0 informati 2016 1:06 total on in PM [Moles/vo source lume] in data Serum or Plasma Creatinin 0.55 - mg/dL Normal No May 29 e 1.02 informati 2017 1:06 [Mass/vol on in PM ume] in source Serum or data Plasma Estimated 59- ML/MIN No REFERENCE May 29 informati RANGE: 2017 1:06 glomerula on in >60 PM r source ML/MIN/1. filtratio data 73 SQUARE n rate METERSIf (GF this patient is -A merican, then multiply theresult by 1.210. Globulin 1.3 - 3.2 gm/dL High No May 29 [Mass/vol informati 2016 1:06 ume] in on in PM Serum source data Glucose 74 - 106 mg/dL High No May 29 [Mass/vol informati 2016 1:06 ume] in on in PM Serum or source Plasma data Potassium 3.5 - 5.1 mmoL/L Normal No May 29 informati 2016 1:06 [Moles/vo on in PM lume] in source Serum or data Plasma Sodium 136 - 145 mmoL/L Normal No May 29 [Moles/vo informati 2016 1:06 lume] in on in PM Serum or source Plasma data Aspartate 15 - 37 U/L Normal No May 292016 1:06 aminotran on in PM sferase source [Enzymati data c activity/ volume] in Serum or Plasma Alanine 12 - 78 U/L Normal No May 29 aminotran ati 2016 1:06 sferase on in PM [Enzymati source c data activity/ volume] in Serum or Plasma Protein 6.4 - 8.2 gm/dL Normal No May 29 [Mass/vol informati 2016 1:06 ume] in on in PM Serum or source Plasma data Lipid 1996 panel in Serum or Plasma Observa Value Referen Units Interpr Notes Date tion ce etation Range Cholester < 200 mg/dL High No May 29 ol 2016 1:06 [Moles/vo on in PM lume] in source Unspecifi data ed specimen Cholester 40 - 60 MG/DL Low No May 29 ol in HDL 2016 1:06 on in PM [Mass/vol source ume] in data Serum or Plasma Cholester 0 - 130 mg/dL High No May 29 ol in LDL 2016 1:06 on in PM [Mass/vol source ume] in data Serum or Plasma by calculati on Triglycer 30 - 200 mg/dL Normal No May 29 leigh 2016 1:06 [Moles/vo on in PM lume] in source Serum or data Plasma Cholester 0 - 40 No Normal No May 29 ol in informati ati 2016 1:06 VLDL on in on in PM [Mass/vol source source ume] in data data Serum or Plasma Thyrotropin [Units/volume] in Serum or Plasma Observa Value Referen Units Interpr Notes Date tion ce etation Range Thyrotrop 0.358 - uIU/ml Normal No May 29 in 3.740 2016 1:06 [Units/vo on in PM lume] in source Serum or data Plasma CBC W Auto Differential panel in Blood Observa Value Referen Units Interpr Notes Date tion ce etation Range Basophils 0 - 0.2 K/MM3 Normal No May 292016 1:06 [#/volume on in PM ] in source Blood by data Automated count Basophils 0.1 - 2.0 % Normal No May 29 /100 ati 2016 1:06 leukocyte on in PM s in source Blood by data Automated count Eosinophi 0.0 - 0.4 K/mm3 Normal No May 29 ls 2016 1:06 [#/volume on in PM ] in source Blood by data Automated count Eosinophi 0.1 - % Normal No May 29 ls/100 12.0 informati 2016 1:06 leukocyte on in PM s in source Blood by data Automated count Granulocy 1.8 - 7.8 K/mm3 Normal No May 29 ann informati 2016 1:06 [#/volume on in PM ] in source Blood by data Automated count Granulocy 37.0 - % Normal No May 29 ann/100 80.0 informati 2016 1:06 leukocyte on in PM s in source Blood by data Automated count Hematocri 37.0 - % Normal No May 29 t [Volume 47.0 informati 2016 1:06 on in PM Fraction] source of Blood data Hemoglobi 12.2 - g/dL Normal No May 29 n 16.2 informati 2016 1:06 [Mass/vol on in PM ume] in source Blood data Lymphocyt 0.7 - 4.5 K/mm3 Normal No May 29 es informati 2016 1:06 [#/volume on in PM ] in source Unspecifi data ed specimen by Automated count Lymphocyt 10 - 50.0 % Normal No May 29 es informati 2016 1:06 [#/volume on in PM ] in source Unspecifi data ed specimen by Automated count Erythrocy 27 - 31.2 pg High No May 29 te mean informati 2016 1:06 corpuscul on in PM ar source hemoglobi data n [Entitic mass] Erythrocy 31.8 - g/dl Normal No May 29 te mean 35.4 informati 2016 1:06 corpuscul on in PM ar source hemoglobi data n concentra tion [Mass/vol ume] by Automated count Erythrocy 82.2 - fl Normal No May 29 te mean 97.8 informati 2016 1:06 corpuscul on in PM ar volume source [Entitic data volume] by Automated count Monocytes 0.1 - 1.0 K/mm3 Normal No May 292016 1:06 [#/volume on in PM ] in source Blood by data Automated count Monocytes 1.7 - 9.3 % Normal No May 29 /100 informati 2016 1:06 leukocyte on in PM s in source Blood by data Automated count Platelet 7.4 - fl Normal No May 29 mean 10.4 informati 2017 1:06 volume on in PM [Entitic source volume] data in Blood by Automated count Platelets 142 - 424 K/mm3 Normal No May 29 informati 2016 1:06 [#/volume on in PM ] in source Blood data Erythrocy 4.2 - 5.4 M/mm3 Low No May 29 ann informati 2016 1:06 [#/volume on in PM ] in source Amniotic data fluid Erythrocy 11.5 - % Normal No May 29 te 17.5 informati 2016 1:06 distribut on in PM ion width source [Entitic data volume] by Automated count Leukocyte 4.8 - K/MM3 Normal No May 29 s 10.8 informati 2016 1:06 [#/volume on in PM ] in source Blood data Basic metabolic panel in Blood Observa Value Referen Units Interpr Notes Date tion ce etation Range Urea 7 - 18 mg/dL Normal No April 03 nitrogen informati 2016 8:10 [Mass/vol on in AM ume] in source Serum or data Plasma Calcium 8.5 - mg/dL Normal No April 03 [Mass/vol 10.1 informati 2016 8:10 ume] in on in AM Serum or source Plasma data Chloride 98 - 107 mmoL/L Normal No April 03 [Moles/vo informati 2016 8:10 lume] in on in AM Serum or source Plasma data Carbon 21.0 - mmoL/L Normal No April 03 dioxide, 32.0 informati 2016 8:10 total on in AM [Moles/vo source lume] in data Serum or Plasma Creatinin 0.55 - mg/dL Normal No April 03 e 1.02 informati 2016 8:10 [Mass/vol on in AM ume] in source Serum or data Plasma Estimated 59- ML/MIN No REFERENCE April 03 informati RANGE: 2017 8:10 glomerula on in >60 AM r source ML/MIN/1. filtratio data 73 SQUARE n rate METERSIf (GF this patient is -A merican, then multiply theresult by 1.210. Glucose 74 - 106 mg/dL High No April 03 [Mass/vol informati 2016 8:10 ume] in on in AM Serum or source Plasma data Potassium 3.5 - 5.1 mmoL/L Normal No April 03 informati 2016 8:10 [Moles/vo on in AM lume] in source Serum or data Plasma Sodium 136 - 145 mmoL/L Normal No April 03 [Moles/vo informati 2016 8:10 lume] in on in AM Serum or source Plasma data CBC W Auto Differential panel in Blood Observa Value Referen Units Interpr Notes Date tion ce etation Range Basophils 0 - 0.2 K/MM3 Normal No April 03 inform2016 8:10 [#/volume on in AM ] in source Blood by data Automated count Basophils 0.1 - 2.0 % Normal No April 03 informati 2016 8:10 leukocyte on in AM s in source Blood by data Automated count Eosinophi 0.0 - 0.4 K/mm3 Normal No April 03 ls informati 2016 8:10 [#/volume on in AM ] in source Blood by data Automated count Eosinophi 0.1 - % Normal No April 03 ls/100 12.0 informati 2016 8:10 leukocyte on in AM s in source Blood by data Automated count Granulocy 1.8 - 7.8 K/mm3 Normal No April 03 ann informati 2016 8:10 [#/volume on in AM ] in source Blood by data Automated count Granulocy 37.0 - % Normal No April 03 ann/100 80.0 informati 2016 8:10 leukocyte on in AM s in source Blood by data Automated count Hematocri 37.0 - % Normal No April 03 t [Volume 47.0 informati 2016 8:10 on in AM Fraction] source of Blood data Hemoglobi 12.2 - g/dL Normal No April 03 n 16.2 informati 2016 8:10 [Mass/vol on in AM ume] in source Blood data Lymphocyt 0.7 - 4.5 K/mm3 Normal No April 03 es informati 2016 8:10 [#/volume on in AM ] in source Unspecifi data ed specimen by Automated count Lymphocyt 10 - 50.0 % Normal No April 03 es informati 2016 8:10 [#/volume on in AM ] in source Unspecifi data ed specimen by Automated count Erythrocy 27 - 31.2 pg High No April 03 te mean informati 2016 8:10 corpuscul on in AM ar source hemoglobi data n [Entitic mass] Erythrocy 31.8 - g/dl Normal No April 03 te mean 35.4 informati 2016 8:10 corpuscul on in AM ar source hemoglobi data n concentra tion [Mass/vol ume] by Automated count Erythrocy 82.2 - fl Normal No April 03 te mean 97.8 informati 2017 8:10 corpuscul on in AM ar volume source [Entitic data volume] by Automated count Monocytes 0.1 - 1.0 K/mm3 Normal No April 03 informati 2016 8:10 [#/volume on in AM ] in source Blood by data Automated count Monocytes 1.7 - 9.3 % Normal No April 03 /100 informati 2017 8:10 leukocyte on in AM s in source Blood by data Automated count Platelet 7.4 - fl Low No April 03 mean 10.4 informati 2017 8:10 volume on in AM [Entitic source volume] data in Blood by Automated count Platelets 142 - 424 K/mm3 Normal No April 03 informati 2016 8:10 [#/volume on in AM ] in source Blood data Erythrocy 4.2 - 5.4 M/mm3 Normal No April 03 ann informati 2016 8:10 [#/volume on in AM ] in source Amniotic data fluid Erythrocy 11.5 - % Normal No April 03 te 17.5 informati 2016 8:10 distribut on in AM ion width source [Entitic data volume] by Automated count Leukocyte 4.8 - K/MM3 Normal No April 03 s 10.8 informati 2016 8:10 [#/volume on in AM ] in source Blood data
--- OUTSIDE RECORDS SUMMARY | 2017-06-16 17:36 | External Medical Summary Rpt ---
Author Author , LADAN PICKERING Address Unknown Phone [email or web address] Care Team Providers Care Mat Machine Operator Name Role Phone DELIA GOLDBERG, Unavailable Unavailable DELIA GOLDBERG JOSÉ KERR, Unavailable Unavailable JOSÉ KERR [facility] BRENDA POTTS, Unavailable Unavailable BRENDA POTTS DON R, Unavailable Unavailable JEFFERY PAGAN Purpose Continuity of Care Document - 11-18-2008 through 2016 Problems Code Diagnosis DOS Provider Status 60791 SHORTNESS 12-30-2008 [facility], OF BREATH DON R 7866 SWELLING, 12-30-2008 PAGAN, MASS, OR DON R LUMP IN CHEST 4414 ABDOMINAL 12-29-2008 [place] [facility] WITHOUT IMAGING MENTION OF ASSOCIATES RUPTURE 25013 OTH 12-02-2008 [facility] SPECIFIED [facility] INFLAMMATOR INC Y POLYARTHROP ATHIES OTH 03310 UNSPECIFIED 12-02-2008 [facility] RESPIRATORY INC ABNORMALITY V5869 LONG-TERM 12-02-2008 [facility] (CURRENT[facility] USE OF INC OTHER MEDICATIONS 28836 PRECORDIAL 11-26-2008 [facility] FAMILY PHYSICIAN PSC 5738 OTHER 11-21-2008 [place] SPECIFIED MEDICAL DISORDERS IMAGING OF LIVER ASSOCIATES 7936 NONSPEC ABN 11-21-2008 [facility] FINDNG RAD [facility] & OTH EXAM INC ABDOMINAL AREA V4581 POSTSURGICA 11-18-2008 Brandy PAGAN AORTOCORONA RY BYPASS STATUS Procedures Procedure DOS Code Location Performer Comment RADIOLOGI 61023 LATASHA PAGAN C 9 JEFFERY [place] [address] [place] MICHAEL POTTS 9 MEDICAL BRENDA Bailey TONEAL IMAGING REAL TIME ASSOCIATE W/IMAGE S COMPLETE LIPID 14952 [facility] PANEL 9 [facility] INC NATRIURET 78376 [facility] IC 9 [facility] PEPTIDE INC INC BLOOD 51060 [facility] COUNT 9 [facility] COMPLETE INC INC AUTO&AUTO DIFRNTL WBC COLLECTIO 39700 [facility] N VENOUS 9 [facility] BLOOD INC INC VENIPUNCT URE COMPREHEN 61244 [facility] SIVE 9 [facility] METABOLIC INC INC PANEL SEDIMENTA 44043 [facility] TILILIYA RATE 9 [facility] RBC INC INC NON-AUTOM ATED 67900 [place] YUSUF, ABDOMINAL 9 MEDICAL DELIA REAL IMAGING TIME ASSOCIATE W/IMAGE S DOCUMENTA TION Encounters Encounter Start End Date Code Location Performer Type Date OFFICE 28914 [facility] OUTPATIEN 9 9 DON R DON R T VISIT 25 MINUTES [facility] 9 9 [facility] 9 9 [facility] INC T OFFICE 83550 [facility] 9 9 FAMILY JOSÉ GAMBLE PHYSICIAN NEW/ESTAB PSC PATIENT 60 MIN [facility] 9 9 [facility] OUT[facility] INC T OFFICE 75105 LAT[facility]HA [facility]AN OUTPATIEN 9 9 DON R DON R T VISIT 15 MINUTES
== END 2017-06-14 00:01 | disposition home or self-care (01) ==
LOC: ER 19:19
PROVIDERS: Emergency Medicine
DX: R07.2 Precordial pain (principal); K21.9 Gastro-esophageal reflux disease without esophagitis; I10 Essential (primary) hypertension; R42 Dizziness and giddiness; J44.9 Chronic obstructive pulmonary disease, unspecified; F41.8 Other specified anxiety disorders
CPT/HCPCS: J2405; Q9967